=== PATIENT | female | born 1970 | race Caucasian/White ===

== ENCOUNTER 2023-05-19 17:56 | Emergency (ER) | payer OTHER ==
[2023-05-19 20:36] LABS: Absolute Lymphocytes (CBC) 0.7 K/uL (0.7-4.9); Absolute Monocytes 0.4 K/uL (0.1-1.3); Absolute Neutrophil 8.3 K/uL (1.8-8.0); Basophils % 0.3 % (0-1.3); Eosinophils % 0.2 % (0-4.4); Hematocrit 27.3 % (36.0-45.0); Hemoglobin 9.3 g/dL (12.0-15.0); MCH 36.2 pg (27.0-35.0); MCHC 34.2 g/dL (32.0-36.0); MCV 105.6 fL (80-100); MPV 6.9 fL (7.6-11.3); Monocytes % 4.5 % (3.3-12.3); Nucleated Red Blood Cells % 0.1 % (0-0); Platelets 192 thou/uL (152-406); RBC Red Blood Cell Count 2.58 M/uL (3.86-4.86); Red Cell Distribution Width 13.1 % (12.1-15.2)
[2023-05-19] MEDS ORDERED: NA CHLORIDE 0.9% 1,000 ML ONE (20:47)
[2023-05-19] MEDS ORDERED: FAMOTIDINE 20 MG/2 ML VIAL IV ONE (20:47)
[2023-05-19] MEDS ORDERED: ONDANSETRON 4 MG/2 ML VIAL ONE (20:47)
[2023-05-19 20:57] LABS: Albumin 2.2 g/dL (3.4-5.0); Albumin/Globulin Ratio 0.5 (1.1-1.8); Anion Gap 10.3 mEq/L (5.0-15.0); Bilirubin Total 0.4 mg/dL (0.2-1.0); Globulin 4.2 g/dL (2.3-3.5); Protein, Total 6.4 g/dL (6.4-8.2)
[2023-05-19 20:59] LABS: Potassium 2.3 mEq/L (3.5-5.1)
[2023-05-19 21:02] LABS: Blood Morphology Comment NOTED (NOT SEEN); Macrocytosis 1+; Platelet Estimate ADEQ; White Blood Cell Scan OK (OK)
[2023-05-19] MEDS ORDERED: POTASSIUM 25 MEQ EFFERV TAB ONE (21:05)
[2023-05-19] MEDS ORDERED: NA CHLORIDE 0.9% 0 ML ONE (21:06)
[2023-05-19] MEDS ORDERED: KCL 20 MEQ/100 mL IVPB 100 ML IV ONE (21:06)
[2023-05-19] MEDS ORDERED: KETOROLAC 30 MG/ML INJ ONE (21:18)
--- NOTE | 2023-05-19 21:48 | RAD REPORT ---
EXAM DESCRIPTION: US - Abdomen Exam Limited - 05/19/2023 9:40 pm CLINICAL HISTORY: ABD PAIN COMPARISON: No comparisons FINDINGS: The gallbladder demonstrates no gallstones. No pericholecystic fluid or gallbladder wall t hickening. The common bile duct is normal measuring 2 mm. The liver demonstrates no findings of intrahepatic biliary dilatation. IMPRESSION: Unremarkable examination.
--- NOTE | 2023-05-19 23:52 | EDPHYS ---
Physician Documentation [facility] Name: Radha Austin Age: 52 yrs Sex: Female : 1970 Arrival Date: 05/19/2023 Time: 17:56 Bed 10 Private MD: ED Physician Wallace Mejia HPI: 05/18 18:59 This 52 yrs old Female presents to ER via Ambulatory with complaints of sb4 Nausea/Vomiting, Weakness. 18:59 nausea and vomiting for months now. has seen Dr. Robb- had blood work, EGD, sb4 colonoscopy- but has not yet had her follow up appointment. states she continues to vomit and cannot hold anything down and is feeling very weak and dehydrated. also endorses diarrhea. denies any fever. 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 - Infectious Disease History:: Denies. - Social history:: Smoking status: Patient reports the use of cigarette tobacco products, denies chronic smoking, but will smoke occasionally. ROS: 18:59 Constitutional: Negative for fever, chills, and weight loss, sb4 18:59 Abdomen/GI: Positive for nausea, vomiting, and diarrhea, 18:59 All other systems are negative, Exam: 18:59 Constitutional: This is a well developed, well nourished patient who is awake, alert, sb4 and in no acute distress. Head/Face: Normocephalic, atraumatic. Eyes: Extra-ocular motions intact. Periorbital areas with no swelling, redness, or edema. ENT: Mucous membranes moist. Cardiovascular: Regular rate and rhythm with a normal S1 and S2. Respiratory: Lungs have equal breath sounds bilaterally, clear to auscultation and percussion. No rales, rhonchi or wheezes noted. No increased work of breathing, no retractions or nasal flaring. Abdomen/GI: Soft, non-tender, no distension. Skin: Warm, dry with normal turgor. Normal color with no rashes, no lesions, and no evidence of cellulitis. MS/ Extremity: Pulses equal, no cyanosis. Neurovascular intact. Full, normal range of motion. Neuro: Awake and alert, GCS 15, oriented to person, place, time, and situation. Motor strength 5/5 in all extremities. Sensory grossly intact. Vital Signs: 18:47 BP 104 / 76; Pulse 76; Resp 18; Temp 98(O); Pulse Ox 100% on R/A; Weight 33.11 kg (R); nj1 Height 5 ft. 2 in. ; Pain 6/10; 20:00 BP 102 / 79; Pulse 79; Resp 18; Pulse Ox 99% ; pf1 21:00 BP 105 / 72; Pulse 75; Resp 16; Pulse Ox 99% ; pf1 22:00 BP 110 / 75; Pulse 72; Resp 16; Pulse Ox 100% on R/A; Pain 0/10; pf1 23:00 BP 108 / 69; Pulse 83; Resp 16; Pulse Ox 100% ; pf1 05/19 00:00 BP 101 / 73; Pulse 80; Resp 16; Pulse Ox 100% ; pf1 01:00 BP 95 / 61; Pulse 69; Resp 16; Pulse Ox 99% on R/A; pf1 02:00 BP 99 / 71; Pulse 68; Resp 18; Temp 97.9; Pulse Ox 100% ; Pain 0/10; pf1 05/18 18:47 Body Mass Index 13.35 (33.11 kg, 157.48 cm) [facility] 05/18 18:47 Pain Scale: Adult nj 22:00 Pain Scale: Adult pf1 02:00 Pain Scale: Adult pf1 MDM: 05/18 18:56 Patient medically screened. sb4 23:16 Data reviewed: vital signs, nurses notes, lab test result(s), radiologic studies, and sb4 as a result, I will discharge patient. Consideration of Admission/Observation Escalation of care including admission/observation considered. Counseling: I had a detailed discussion with the patient and/or guardian regarding the historical points, exam findings, and any diagnostic results supporting the discharge/admit diagnosis, lab results, radiology results, the need for outpatient follow up, a meter reader inspector, to return to the emergency department if symptoms worsen or persist or if there are any questions or concerns that arise at home. 05/18 18:56 Order name: CBC with Diff; Complete Time: 21:05 sb4 04/02 18:56 Order name: CMP; Complete Time: 21:00 sb4 05/18 18:56 Order name: Lipase; Complete Time: 21:00 sb4 05/18 21:03 Order name: CBC Smear Scan; Complete Time: 21:05 EDMS 05/18 21:00 Order name: Abdomen Limited US; Complete Time: 21:52 sb4 05/18 21:29 Order name: CT Abd/Pelvis - IV Contrast Only sb4 05/18 18:56 Order name: IV Saline Lock; Complete Time: 20:27 sb4 05/18 18:56 Order name: Labs collected and sent; Complete Time: 20:27 sb4 Administered Medications: 21:20 Drug: NS 0.9% IV 1000 ml IV at 1 bolus Per protocol; 1000 mL bolus Route: IV; Rate: 1 pf1 bolus; Site: right antecubital; 22:30 Follow up: Response: No adverse reaction; IV Status: Completed infusion; IV Intake: pf1 1000ml 21:20 Drug: Famotidine IVP 20 mg IVP once; dilute with 10 mL 0.9% NaCl; give over 2 minutes pf1 Route: IVP; Site: right antecubital; 21:20 Follow up: Response: No adverse reaction; Marked relief of symptoms; Pain is decreased pf1 21:20 Drug: Ondansetron IVP 4 mg IVP once; over 2 minutes Route: IVP; Site: right antecubital;pf1 22:00 Follow up: Response: No adverse reaction; Marked relief of symptoms; Nausea is decreasedpf1 21:28 Drug: Potassium Chloride IV 20 mEq IV at calculated rate once; administer over 1-2 pf1 hours Route: IV; Rate: calculated rate; Site: right antecubital; 05/19 00:00 Follow up: Response: No adverse reaction; IV Status: Completed infusion; IV Intake: pf1 100ml 05/18 21:28 Drug: Potassium PO Effervescent Tablet 50 mEq PO once; dissolve in 4 ounces of water or pf1 juice Route: PO; 22:20 Follow up: Response: No adverse reaction; Marked relief of symptoms pf1 21:40 Drug: Ketorolac IVP 15 mg IVP once Route: IVP; Site: right antecubital; pf1 22:40 Follow up: Response: No adverse reaction; Marked relief of symptoms; Pain is decreased pf1 05/19 00:16 Drug: metroNIDAZOLE IVPB 500 mg 100 ml IVPB at 200 ml/hr once over 30 mins Volume: 100 cg ml; Route: IVPB; Rate: 200 ml/hr; Infused Over: 30 mins; Site: right antecubital; 01:00 Follow up: Response: No adverse reaction; Marked relief of symptoms; IV Status: pf1 Completed infusion; IV Intake: 100ml 00:16 Drug: Fluconazole PO 200 mg PO once Route: PO; cg 01:00 Follow up: Response: No adverse reaction pf1 00:17 Drug: Alum-Mag Hydroxide-Simeth PO Suspension (200 mg-200 mg-20 mg/5 mL) 30 ml PO once cg Route: PO; 01:00 Follow up: Response: No adverse reaction; Marked relief of symptoms; Pain is decreased pf1 00:17 Drug: Pantoprazole IVP 40 mg IVP once Route: IVP; Site: right antecubital; cg 01:00 Follow up: Response: No adverse reaction; Marked relief of symptoms pf1 00:17 Drug: Rocephin IV 1 grams IV at calculated rate once; Given slow IV push per pharmacy cg instructions Route: IV; Rate: calculated rate; Site: right antecubital; 00:20 Follow up: Response: No adverse reaction; Marked relief of symptoms; IV Status: pf1 Completed infusion; IV Intake: 10ml Disposition Summary: 05/19/23 23:51 Discharge Ordered Notes: Location: Home sb4 Problem: new sb4 Symptoms: have improved sb4 Condition: Stable sb4 Diagnosis - Left sided colitis sb4 - Hypokalemia sb4 Followup: sb4 - With: Zach Robb MD - When: 2 - 3 days - Reason: Recheck today's complaints, Re-evaluation by your physician Discharge Instructions: - Discharge Summary Sheet sb4 - Potassium Content of Foods sb4 - Hypokalemia sb4 - Colitis sb4 Forms: - Thank You Letter sb4 - Antibiotic Education sb4 - Patient Portal Instructions sb4 - Leadership Thank You Letter sb4 Prescriptions: - Flagyl 500 mg Oral Tablet - take 1 tablet ORAL route every 12 hours for 7 days; 14 tablet; Refills: 0, sb4 Product Selection Permitted - Cipro 500 mg Oral Tablet - take 1 tablet ORAL route every 12 hours for 7 days; 14 tablet; Refills: 0, sb4 Product Selection Permitted - Pepcid 20 mg Oral Tablet - take 1 tablet ORAL route once daily; 20 tablet; Refills: 0, Product Selection sb4 Permitted - ondansetron 8 mg Oral Tablet,disintegrating - take 1 tablet ORAL route every 12 hours; 20 tablet; Refills: 0, Product sb4 Selection Permitted Signatures: Dispatcher [employer] EDAnanya Chong, RN RN Rachell Lynch PA-C PA-C sb4 Jeannette Sierra RN RN pf1 Elba Hernandez RN RN nj1 Corrections: (The following items were deleted from the chart) 05/18 18:57 18:57 CBC+H.LAB.BRZ ordered. EDMS EDMS 18:57 18:57 COMPREHENSIVE METABOLIC PANEL+C.LAB.BRZ ordered. EDMS EDMS 18:57 18:57 LIPASE+C.LAB.BRZ ordered. EDMS EDMS
--- NOTE | 2023-05-19 23:52 | ER ---
Nurse's Notes [facility] Name: Radha Austin Age: 52 yrs Sex: Female : 1970 Arrival Date: 05/19/2023 Time: 17:56 Bed 10 Private MD: Diagnosis: Left sided colitis;Hypokalemia Presentation: 05/18 18:47 Chief complaint: Patient states: Vomiting for over a month, "cannot keep anything nj1 down". Had scope two weeks ago, fu appointment next week. Coronavirus screen: Vaccine status: Patient reports being unvaccinated. Ebola Screen: Patient denies travel to an Ebola-affected area in the 21 days before illness onset. Initial Sepsis Screen: Does the patient meet any 2 criteria? No. Patient's initial sepsis screen is negative. Does the patient have a suspected source of infection? No. Patient's initial sepsis screen is negative. Risk Assessment: Do you want to hurt yourself or someone else? Patient reports no desire to harm self or others. Onset of symptoms was March 2023. 18:47 Method Of Arrival: Ambulatory [facility] 18:47 Acuity: BESS 3 [facility] Triage Assessment: 19:50 General: Appears in no apparent distress. comfortable, well groomed, well developed, pf1 Behavior is calm, cooperative, appropriate for age, quiet. 19:50 Pain: Denies pain. EENT: No deficits noted. No signs and/or symptoms were reported pf1 regarding the EENT system. Neuro: Level of Consciousness is awake, alert, obeys commands, Oriented to person, place, time, situation, Reports weakness. Cardiovascular: No deficits noted. Capillary refill < 3 seconds Patient's skin is warm and dry. Respiratory: No deficits noted. Airway is patent Respiratory effort is even, unlabored, Respiratory pattern is regular, symmetrical, Breath sounds are clear bilaterally. GI: Abdomen is flat, non-distended, Bowel sounds present X 4 quads. Abd is soft and non tender X 4 quads. Reports nausea, vomiting. : No deficits noted. No signs and/or symptoms were reported regarding the genitourinary system. Derm: No deficits noted. No signs and/or symptoms reported regarding the dermatologic system. Musculoskeletal: No deficits noted. No signs and/or symptoms reported regarding the musculoskeletal system. 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 - Infectious Disease History:: Denies. - Social history:: Smoking status: Patient reports the use of cigarette tobacco products, denies chronic smoking, but will smoke occasionally. Screenin:50 [facility] ED Fall Risk Assessment (Adult) History of falling in the last 3 months, pf1 including since admission No falls in past 3 months (0 pts) Confusion or Disorientation No (0 pts) Intoxicated or Sedated No (0 pts) Impaired Gait No (0 pts) Mobility Assist Device Used No (0 pt) Altered Elimination No (0 pt) Score/Fall Risk Level 0 - 2 = Low Risk Oriented to surroundings, Maintained a safe environment, Educated pt \\T\\ family on fall prevention, incl call for assistance when getting out of bed, Assessed \\T\\ reinforced patient's understanding of fall precautions, Provided non-skid footwear, Hourly rounding (assess needs \\T\\ fall precautionary measures) done, Used ambulatory aids as needed (educated on \\T\\ assisted with), Used gait belt as appropriate. Abuse screen: Denies threats or abuse. Nutritional screening: No deficits noted. Tuberculosis screening: No symptoms or risk factors identified. Assessment: 19:50 GI: Abdomen is flat, non-distended. pf1 21:00 Reassessment: Patient appears in no apparent distress at this time. Patient and/or pf1 family updated on plan of care and expected duration. Pain level reassessed. Patient is alert, oriented x 3, equal unlabored respirations, skin warm/dry/pink. Patient states symptoms have improved. 22:00 Reassessment: Patient appears in no apparent distress at this time. Patient and/or pf1 family updated on plan of care and expected duration. Pain level reassessed. Patient is alert, oriented x 3, equal unlabored respirations, skin warm/dry/pink. 23:00 Reassessment: Patient appears in no apparent distress at this time. Patient and/or pf1 family updated on plan of care and expected duration. Pain level reassessed. Patient is alert, oriented x 3, equal unlabored respirations, skin warm/dry/pink. 05/19 00:00 Reassessment: Patient appears in no apparent distress at this time. Patient and/or pf1 family updated on plan of care and expected duration. Pain level reassessed. Patient is alert, oriented x 3, equal unlabored respirations, skin warm/dry/pink. Patient states feeling better. Patient states symptoms have improved. 01:00 Reassessment: Patient appears in no apparent distress at this time. Patient and/or pf1 family updated on plan of care and expected duration. Pain level reassessed. Patient is alert, oriented x 3, equal unlabored respirations, skin warm/dry/pink. Patient states feeling better. Patient states symptoms have improved. 02:00 Reassessment: Patient appears in no apparent distress at this time. Patient and/or pf1 family updated on plan of care and expected duration. Pain level reassessed. Patient is alert, oriented x 3, equal unlabored respirations, skin warm/dry/pink. Patient states feeling better. Patient states symptoms have improved. Vital Signs: 05/18 18:47 BP 104 / 76; Pulse 76; Resp 18; Temp 98(O); Pulse Ox 100% on R/A; Weight 33.11 kg (R); nj1 Height 5 ft. 2 in. ; Pain 6/10; 20:00 BP 102 / 79; Pulse 79; Resp 18; Pulse Ox 99% ; pf1 21:00 BP 105 / 72; Pulse 75; Resp 16; Pulse Ox 99% ; pf1 22:00 BP 110 / 75; Pulse 72; Resp 16; Pulse Ox 100% on R/A; Pain 0/10; pf1 23:00 BP 108 / 69; Pulse 83; Resp 16; Pulse Ox 100% ; pf1 05/19 00:00 BP 101 / 73; Pulse 80; Resp 16; Pulse Ox 100% ; pf1 01:00 BP 95 / 61; Pulse 69; Resp 16; Pulse Ox 99% on R/A; pf1 02:00 BP 99 / 71; Pulse 68; Resp 18; Temp 97.9; Pulse Ox 100% ; Pain 0/10; pf1 05/18 18:47 Body Mass Index 13.35 (33.11 kg, 157.48 cm) [facility] 05/18 18:47 Pain Scale: Adult nj1 22:00 Pain Scale: Adult pf1 02:00 Pain Scale: Adult pf1 ED Course: 05/18 17:59 Patient arrived in ED. mg5 18:26 Rachell Jameson PA-C is PHCP. sb4 18:26 Wallace Mejia MD is Attending Physician. sb4 18:51 Triage completed. nj1 18:52 Arm band placed on. nj1 19:50 Patient has correct armband on for positive identification. Placed in gown. Bed in low pf1 position. Call light in reach. Side rails up X 1. 20:27 CBC with Diff Sent. bc6 20:27 CMP Sent. bc6 20:27 Lipase Sent. bc6 20:27 Initial lab(s) drawn, by me, sent to lab. Inserted saline lock: 22 gauge in right bc6 antecubital area, using aseptic technique. Blood collected. 21:42 Abdomen Limited US In Process Unspecified. EDMS 22:37 CT Abd/Pelvis - IV Contrast Only In Process Unspecified. EDMS 23:51 Zach Robb MD is Referral Physician. sb4 05/19 02:19 Provided Education on: prescriptions . pf1 02:19 No provider procedures requiring assistance completed. IV discontinued, intact, pf1 bleeding controlled, No redness/swelling at site. Pressure dressing applied. Administered Medications: 05/18 21:20 Drug: NS 0.9% IV 1000 ml IV at 1 bolus Per protocol; 1000 mL bolus Route: IV; Rate: 1 pf1 bolus; Site: right antecubital; 22:30 Follow up: Response: No adverse reaction; IV Status: Completed infusion; IV Intake: pf1 1000ml 21:20 Drug: Famotidine IVP 20 mg IVP once; dilute with 10 mL 0.9% NaCl; give over 2 minutes pf1 Route: IVP; Site: right antecubital; 21:20 Follow up: Response: No adverse reaction; Marked relief of symptoms; Pain is decreased pf1 21:20 Drug: Ondansetron IVP 4 mg IVP once; over 2 minutes Route: IVP; Site: right antecubital;pf1 22:00 Follow up: Response: No adverse reaction; Marked relief of symptoms; Nausea is decreasedpf1 21:28 Drug: Potassium Chloride IV 20 mEq IV at calculated rate once; administer over 1-2 pf1 hours Route: IV; Rate: calculated rate; Site: right antecubital; 05/19 00:00 Follow up: Response: No adverse reaction; IV Status: Completed infusion; IV Intake: pf1 100ml 05/18 21:28 Drug: Potassium PO Effervescent Tablet 50 mEq PO once; dissolve in 4 ounces of water or pf1 juice Route: PO; 22:20 Follow up: Response: No adverse reaction; Marked relief of symptoms pf1 21:40 Drug: Ketorolac IVP 15 mg IVP once Route: IVP; Site: right antecubital; pf1 22:40 Follow up: Response: No adverse reaction; Marked relief of symptoms; Pain is decreased pf1 05/19 00:16 Drug: metroNIDAZOLE IVPB 500 mg 100 ml IVPB at 200 ml/hr once over 30 mins Volume: 100 cg ml; Route: IVPB; Rate: 200 ml/hr; Infused Over: 30 mins; Site: right antecubital; 01:00 Follow up: Response: No adverse reaction; Marked relief of symptoms; IV Status: pf1 Completed infusion; IV Intake: 100ml 00:16 Drug: Fluconazole PO 200 mg PO once Route: PO; 01:00 Follow up: Response: No adverse reaction pf1 00:17 Drug: Alum-Mag Hydroxide-Simeth PO Suspension (200 mg-200 mg-20 mg/5 mL) 30 ml PO once cg Route: PO; 01:00 Follow up: Response: No adverse reaction; Marked relief of symptoms; Pain is decreased pf1 00:17 Drug: Pantoprazole IVP 40 mg IVP once Route: IVP; Site: right antecubital; 01:00 Follow up: Response: No adverse reaction; Marked relief of symptoms pf1 00:17 Drug: Rocephin IV 1 grams IV at calculated rate once; Given slow IV push per pharmacy cg instructions Route: IV; Rate: calculated rate; Site: right antecubital; 00:20 Follow up: Response: No adverse reaction; Marked relief of symptoms; IV Status: pf1 Completed infusion; IV Intake: 10ml Medication: 05/18 19:50 VIS not applicable for this client. pf1 Intake: 22:30 IV: 1000ml; Total: 1000ml. pf1 05/19 00:00 IV: 100ml; Total: 1100ml. pf1 00:20 IV: 10ml; Total: 1110ml. pf1 01:00 IV: 100ml; Total: 1210ml. pf1 Outcome: 05/18 23:51 Discharge ordered by . lisa 05/19 02:19 Patient left the ED. pf1 02:19 Discharged to home ambulatory, with family, pf1 02:19 Condition: improved pf1 02:19 Discharge instructions given to patient, Instructed on discharge instructions, follow up and referral plans. Demonstrated understanding of instructions, follow-up care, medications, Prescriptions given X 4, Signatures: Dispatcher [employer] EDAnanya Chong, RN RN Rachell Lynch, PA-C PA-C sb4 Jeannette Sierra RN RN pf1 Bing Salomon bc6 Elba Hernandez RN RN nj1 Qian Leyva mg5
[2023-05-19] MEDS ORDERED: PANTOPRAZOLE 40 MG INJ ONE (23:58)
[2023-05-19] MEDS ORDERED: MAGNES/ALUMIN/SIMET 30ML UCUP ONE (23:58)
[2023-05-19] MEDS ORDERED: CEFTRIAXONE 1000 MG/VIAL ONE (23:58)
[2023-05-19] MEDS ORDERED: METRONIDAZOLE 500mg IVPB 500 MG/100 ML BAG IV ONE (23:59)
[2023-05-19] MEDS ORDERED: FLUCONAZOLE 100 MG TAB ONE (23:59)
[2023-05-20 02:49] VITALS: BP 104/76; TEMP 98; O2SAT 100
--- NOTE | 2023-05-20 10:37 | RAD REPORT ---
EXAM DESCRIPTION: CT Abdomen and Pelvis With Intravenous Contrast CLINICAL HISTORY: The patient is 52 years old and is Female; ABD PAIN TECHNIQUE: Axial computed tomography images of the abdomen and pelvis with intravenous contrast. S agittal and coronal reformatted images were created and reviewed. This CT exam was performed using one or more of the following dose reduction techniques: automated exposure control, adjustment of t he mA and/or kV according to patient size, and/or use of iterative reconstruction technique. COMPARISON: No relevant prior studies available. FINDINGS: LUNG BASES: Unremarkable. No mass. No consolidation. ABDOMEN: LIVER: The liver is diffusely heterogeneous with areas of fatty infiltration. GALLBLADDER AND BILE DUCTS: No calcified stones. No ductal dilation. PANCREAS: No ductal dilation. No mass. SPLEEN: The spleen is heterogeneous, likely secondary to phase of contrast. ADRENALS: Unremarkable. No mass. KIDNEYS AND URETERS: Unremarkable. The kidneys enhance symmetrically. No obstructing renal or ure teral calculus is seen. No hydronephrosis or hydroureter. No perinephric fluid or stranding. STOMACH AND BOWEL: The stomach is not well-distended. The small bowel is relatively decompressed. Stool and air noted throughout colon. Extensive mucosal thickening involving the cecum and ascending colon is present. PELVIS: APPENDIX: No findings to suggest acute appendicitis. BLADDER: Unremarkable. No mass. REPRODUCTIVE: Unremarkable as visualized. ABDOMEN and PELVIS: INTRAPERITONEAL SPACE: Small volume ascites is present throughout the abdomen and pelvis. BONES/JOINTS: No acute fracture. SOFT TISSUES: Diffuse edema throughout the mesentery is noted. VASCULATURE: Atherosclerosis of the vasculature is present. No abdominal aortic aneurysm. LYMPH NODES: Unremarkable. No enlarged lymph nodes. IMPRESSION: 1. Findings suggest extensive colitis specifically involving the cecum and ascending c olon. 2. Small volume ascites with extensive mesenteric edema. 3. Enlarged liver which is diffusely heterogeneous. Findings may be secondary to geographic fatty i nfiltration. However, correlation with patient's laboratory values and follow-up is recommended. Electronically signed by: Bernie Montenegro MD 05/19/2023 10:58 PM CDT Due to temporary technical issues with the PACS/Fluency reporting system, reports are being signed by the in house radiologist without review as a courtesy to ensure prompt reporting. The interpreting r adiologist is fully responsible for the content of the report.
== END 2023-05-20 02:19 | disposition home or self-care (01) ==
LOC: ER 17:56
DX: K51.50 Left sided colitis without complications (principal); E87.6 Hypokalemia; F17.210 Nicotine dependence, cigarettes, uncomplicated
CPT/HCPCS: 85025; 36415; 83690; 80053; 74177; 76705; Q9967; J3480; C9113; J2405; J7030; J0696; J7040

== ENCOUNTER 2023-05-27 13:05 | Inpatient (IN) | payer OTHER ==
[2023-05-27] MEDS ORDERED: NA CHLORIDE 0.9% 1,000 ML ONE ×2 (13:26→15:04)
[2023-05-27] MEDS ORDERED: ONDANSETRON 4 MG/2 ML VIAL ONE (13:26)
[2023-05-27 13:56] LABS: Hematocrit 29.3 % (36.0-45.0); Hemoglobin 9.5 g/dL (12.0-15.0); MCH 35.5 pg (27.0-35.0); MCV 109.4 fL (80-100); RBC Red Blood Cell Count 2.68 M/uL (3.86-4.86)
[2023-05-27 13:57] LABS: Absolute Lymphocytes (CBC) 0.4 K/uL (0.7-4.9); Absolute Monocytes 0.7 K/uL (0.1-1.3); Absolute Neutrophil 12.2 K/uL (1.8-8.0); Eosinophils % 0.1 % (0-4.4); Lymphocytes % 3.2 % (15.3-44.8); MCHC 32.4 g/dL (32.0-36.0); MPV 7.9 fL (7.6-11.3); Monocytes % 5.1 % (3.3-12.3); Neutrophils % 91.6 % (41.7-73.7); Platelets 257 thou/uL (152-406); Red Cell Distribution Width 14.4 % (12.1-15.2)
--- NOTE | 2023-05-27 14:24 | RAD REPORT ---
EXAM DESCRIPTION: CT - Abdomen Pelvis W Contrast - 05/27/2023 2:03 pm CLINICAL HISTORY: Abdominal pain COMPARISON: May 19, 2023 TECHNIQUE: Computed axial tomography of the abdomen pelvis was obtained. 100 cc Isovue-300 was admin istered intravenously. Oral contrast was not requested which limits evaluation of bowel and appendix All CT scans are performed using dose optimization technique as appropriate and may include automated exposure control or mA/KV adjustment according to patient size. FINDINGS: Small right pleural effusion with mild right lower lobe atelectasis Hyperplasia or adrenal glands is suspected Liver, spleen, pancreas are unremarkable Diminished density of the renal cortex bilaterally. Marked thickening of the wall of the right and transverse colon. Moderate thickening of the wall of l eft colon Moderate pelvic and small to moderate abdominal ascites No free air. No pneumatosis intestinalis IMPRESSION: Moderate to marked pancolitis Diminished density of the renal cortex bilaterally. This is of uncertain etiology but may be related to systemic illness resulting in diminished perfusion
[2023-05-27 14:31] LABS: Specific Gravity 1.017 (1.005-1.030); Transitional Epithelial <5 /HPF (None Seen); Urine Bacteria <20 /HPF (<20); Urine Bilirubin NEGATIVE (Negative); Urine Blood 1+ (Negative); Urine Clarity Extremely Turbid (Clear); Urine Color Yellow (Yellow); Urine Culture Reflex Order REFLEXED; Urine Glucose NEGATIVE (Negative); Urine Ketones NEGATIVE (Negative); Urine Microscopic Reflex YN ORDER UMIC; Urine Mucus Slight /HPF (None Seen); Urine Nitrite NEGATIVE (Negative); Urine Protein 2+ (Negative); Urine RBC <5 /HPF (None Seen); Urine Urobilinogen Normal (Normal); Urine pH 5.5 (5.0-7.0)
[2023-05-27 14:32] LABS: Albumin 2.2 g/dL (3.4-5.0); Albumin/Globulin Ratio 0.6 (1.1-1.8); Anion Gap 12.7 mEq/L (5.0-15.0); Bilirubin Total 0.6 mg/dL (0.2-1.0); Globulin 3.9 g/dL (2.3-3.5); Potassium 3.7 mEq/L (3.5-5.1); Protein, Total 6.1 g/dL (6.4-8.2)
[2023-05-27 14:37] LABS: Platelet Estimate ADEQ; White Blood Cell Scan OK (OK)
[2023-05-27 14:38] LABS: Blood Morphology Comment NOTED (NOT SEEN); Macrocytosis 1+
--- NOTE | 2023-05-27 14:52 | ER ---
Nurse's Notes [facility] Name: Radha Austin Age: 52 yrs Sex: Female : 1970 Arrival Date: 05/27/2023 Time: 13:05 Bed 14 Private MD: Diagnosis: Acute kidney failure, unspecified;Dehydration;Pancolitis;Severe sepsis with septic shock Presentation: 05/26 13:16 Chief complaint: Patient states: Here last Thursday, felt better for a couple days. Very ll1 weak, brain fog, no appetite, diarrhea now for 4-5 days. Coronavirus screen: Client denies travel out of the [place] in the last 14 days. At this time, the client does not indicate any symptoms associated with coronavirus-19. Ebola Screen: Patient denies travel to an Ebola-affected area in the 21 days before illness onset. Initial Sepsis Screen: Does the patient meet any 2 criteria? No. Patient's initial sepsis screen is negative. Does the patient have a suspected source of infection? No. Patient's initial sepsis screen is negative. Risk Assessment: Do you want to hurt yourself or someone else? Patient reports no desire to harm self or others. Onset of symptoms was May 22, 2023. 13:16 Method Of Arrival: Ambulatory ll1 13:16 Acuity: BESS 3 ll1 Triage Assessment: 13:17 General: Appears uncomfortable, ill, emaciated, Behavior is calm, cooperative, ll1 appropriate for age. General: Reports fatigue for. Pain: Complains of pain in abdomen Pain currently is 6 out of 10 on a pain scale. Quality of pain is described as aching, crushing. Neuro: Reports weakness "brain fog". GI: Reports lower abdominal pain, diarrhea, intolerance of fluids, intolerance of food. Historical: - Allergies: 13:15 No Known Allergies; ll1 - PMHx: 13:15 Anxiety; Colitis; Depression; Hypertension; ll1 - PSHx: 13:15 hysterectomy; ll1 - Immunization history:: Adult Immunizations up to date. - Infectious Disease History:: Denies. - Social history:: Smoking status: Patient/guardian denies using tobacco, Stopped _ months ago .2. Screenin:44 [facility] ED Fall Risk Assessment (Adult) History of falling in the last 3 months, kc6 including since admission No falls in past 3 months (0 pts) Confusion or Disorientation No (0 pts) Intoxicated or Sedated No (0 pts) Impaired Gait No (0 pts) Mobility Assist Device Used No (0 pt) Altered Elimination No (0 pt) Score/Fall Risk Level 0 - 2 = Low Risk. Abuse screen: Denies threats or abuse. Denies injuries from another. Nutritional screening: No deficits noted. Tuberculosis screening: No symptoms or risk factors identified. Assessment: 13:45 General: Appears in no apparent distress. comfortable, slender, well groomed, Behavior kc6 is calm, cooperative, appropriate for age. Pain: Denies pain. Neuro: Level of Consciousness is awake, alert, obeys commands, Oriented to person, place, time, situation, Appropriate for age. Cardiovascular: Capillary refill < 3 seconds. Respiratory: Airway is patent Trachea midline Respiratory effort is even, unlabored, Respiratory pattern is regular, symmetrical. GI: Abdomen is flat, non-distended, Bowel sounds present X 4 quads. Abd is soft and non tender X 4 quads. Reports diarrhea, nausea, vomiting, Patient currently denies abdominal pain. : No signs and/or symptoms were reported regarding the genitourinary system. EENT: No signs and/or symptoms were reported regarding the EENT system. Derm: No signs and/or symptoms reported regarding the dermatologic system. Skin is intact, is healthy with good turgor, Skin is pink, warm \\T\\ dry. Musculoskeletal: No signs and/or symptoms reported regarding the musculoskeletal system. Circulation, motion, and sensation intact. Capillary refill < 3 seconds, Range of motion: intact in all extremities. 15:30 Reassessment: Patient appears in no apparent distress at this time. Patient and/or ph family updated on plan of care and expected duration. Pain level reassessed. Patient is alert, oriented x 3, equal unlabored respirations, skin warm/dry/pink. 16:30 Reassessment: Patient appears in no apparent distress at this time. Patient and/or ph family updated on plan of care and expected duration. Pain level reassessed. Patient is alert, oriented x 3, equal unlabored respirations, skin warm/dry/pink. 18:00 Reassessment: Patient appears in no apparent distress at this time. Patient and/or ph family updated on plan of care and expected duration. Pain level reassessed. Patient is alert, oriented x 3, equal unlabored respirations, skin warm/dry/pink. Vital Signs: 13:16 BP 94 / 67; Pulse 80; Resp 18; Temp 98; Pulse Ox 100% on R/A; Weight 34.47 kg (R); ll1 Height 5 ft. 2 in. ; Pain 6/10; 14:30 BP 88 / 52; Pulse 73; Resp 18; Pulse Ox 99% on R/A; ph 15:30 BP 87 / 52; Pulse 72; Resp 18; Pulse Ox 100% on R/A; ph 16:30 BP 98 / 70; Pulse 69; Resp 16; Pulse Ox 100% on R/A; ph 17:30 BP 93 / 69; Pulse 69; Resp 18; Pulse Ox 98% on R/A; ph 18:00 BP 83 / 64; Pulse 71; Resp 18; Pulse Ox 100% on R/A; ph 13:16 Body Mass Index 13.90 (34.47 kg, 157.48 cm) ll1 13:16 Pain Scale: Adult ll1 ED Course: 13:06 Patient arrived in ED. rg4 13:07 Christine Malave FNP-C is [facility]. kb 13:07 Frederick Al MD is Attending Physician. kb 13:08 Socorro Plummer, MARY is Primary Nurse. ph 13:15 Arm band placed on Patient placed in an exam room, on a stretcher. ll1 13:17 Triage completed. ll1 13:25 Urinalysis w/ reflexes Sent. kc6 13:44 Inserted saline lock: 22 gauge in left forearm, using aseptic technique. Blood kc6 collected. 13:45 Patient has correct armband on for positive identification. Bed in low position. Call kc6 light in reach. Side rails up X 1. Client placed on continuous cardiac and pulse oximetry monitoring. NIBP monitoring applied. Door closed. Noise minimized. Lights dimmed. Warm blanket given. 14:05 CT Abd/Pelvis - IV Contrast Only In Process Unspecified. EDMS 14:50 Kassy Loya MD is Hospitalizing Provider. kb 15:19 No provider procedures requiring assistance completed. Patient admitted, IV remains in ph place. 05/27 02:37 Inserted saline lock: 22 gauge in right forearm, using aseptic technique. ty 17:02 Diet tray given. [email or web address] Administered Medications: 05/26 13:46 Drug: NS 0.9% IV 1000 ml IV at 1 bolus Per protocol; 1000 mL bolus Route: IV; Rate: 1 kc6 bolus; Site: left forearm; 15:20 Follow up: Response: No adverse reaction; IV Status: Completed infusion; IV Intake: ph 1000ml 13:46 Drug: Ondansetron IVP 4 mg IVP once; over 2 minutes Route: IVP; Site: left forearm; kc6 15:20 Follow up: Response: No adverse reaction ph 15:18 Drug: Ciprofloxacin IVPB 400 mg 200 ml IVPB once over 60 mins Volume: 200 ml; Route: ph IVPB; Infused Over: 60 mins; Site: left forearm; 16:30 Follow up: Response: No adverse reaction; IV Status: Completed infusion ph 15:18 Drug: NS 0.9% IV 1000 ml IV at 1000 ml once Route: IV; Rate: 1000 ml; Site: left ph forearm; 19:16 Follow up: Response: No adverse reaction; IV Status: Completed infusion; IV Intake: ph 1000ml 16:04 Not Given (Physician Discretion): [id number] mg 100 ml IVPB at 200 ml/hr once ph over 30 mins Medication: 15:20 VIS not applicable for this client. ph Intake: 15:20 IV: 1000ml; Total: 1000ml. ph 19:16 IV: 1000ml; Total: 2000ml. ph Outcome: 14:51 Decision to Hospitalize by Provider. kb 18:10 Admitted to ER Hold. Please see [facility] for further documentation. ph 18:10 Condition: stable 18:10 Instructed on the need for admit, 05/27 17:55 Patient left the ED. iw Signatures: Dispatcher [employer] EDIA Christine Maalve, CHERYLC PUNCHING MACHINE OPERATOR-CkValeria Galvin RN RN iw Socorro Plummer RN RN ph Nicky Slade rg4 Елена Austin RN RN ll1 Melia Mari RN RN kc6 Maurizio Gonzalez [email or web address] Caleb Watt Corrections: (The following items were deleted from the chart) 05/26 13:19 13:16 BP 94 / 67; Pulse 80bpm; Resp 18bpm; Pulse Ox 100% RA; Temp 98F; 34.47 kg ll1 Reported; Pain 6/10, Adult; ll1 13:22 13:16 Chief complaint: Patient states: Here last Thursday, felt better for a couple 1 days. Very weak, brain fog, no appetite, diarrhea now. 1
--- NOTE | 2023-05-27 14:52 | EDPHYS ---
Physician Documentation [facility] Name: Radha Austin Age: 52 yrs Sex: Female : 1970 Arrival Date: 05/27/2023 Time: 13:05 Bed 14 Private MD: ED Physician Frederick Al HPI: 05/26 13:29 This 52 yrs old Female presents to ER via Ambulatory with complaints of Vomiting. kb 13:29 Pt is a 52 year old female who presents for vomiting, abd pain and diarrhea that kb started at the end of February, about 2.5 months ago. States she has seen Dr Robb for this, had an upper and lower GI done and has been here for these complaints. Came in today due to increased weakness. States she has progressively gotten weaker due to inability to tolerate anything by mouth. Reports fever last week, but not since then. States she hasn't vomited in 3 days. . Historical: - Allergies: 13:15 No Known Allergies; ll1 - PMHx: 13:15 Anxiety; Colitis; Depression; Hypertension; ll1 - PSHx: 13:15 hysterectomy; ll1 - Immunization history:: Adult Immunizations up to date. - Infectious Disease History:: Denies. - Social history:: Smoking status: Patient/guardian denies using tobacco, Stopped _ months ago .2. ROS: 13:29 Constitutional: As per HPI kb Exam: 13:29 Constitutional: This is a well developed, well nourished patient who is awake, alert, kb and in no acute distress. Head/Face: Normocephalic, atraumatic. ENT: Moist Mucous membranes Cardiovascular: Regular rate Respiratory: Respirations even and unlabored. No increased work of breathing. Talking in full sentences Skin: Warm, dry with normal turgor. Normal color. MS/ Extremity: Pulses equal, no cyanosis. Neurovascular intact. Full, normal range of motion. Neuro: Awake and alert, GCS 15, oriented to person, place, time, and situation. Moves all extremities. Normal gait. 13:29 Abdomen/GI: Inspection: abdomen appears normal, Bowel sounds: normal, Palpation: soft, in all quadrants, moderate abdominal tenderness, in the right lower quadrant and left lower quadrant, Vital Signs: 13:16 BP 94 / 67; Pulse 80; Resp 18; Temp 98; Pulse Ox 100% on R/A; Weight 34.47 kg (R); ll1 Height 5 ft. 2 in. ; Pain 6/10; 14:30 BP 88 / 52; Pulse 73; Resp 18; Pulse Ox 99% on R/A; ph 15:30 BP 87 / 52; Pulse 72; Resp 18; Pulse Ox 100% on R/A; ph 16:30 BP 98 / 70; Pulse 69; Resp 16; Pulse Ox 100% on R/A; ph 17:30 BP 93 / 69; Pulse 69; Resp 18; Pulse Ox 98% on R/A; ph 18:00 BP 83 / 64; Pulse 71; Resp 18; Pulse Ox 100% on R/A; ph 13:16 Body Mass Index 13.90 (34.47 kg, 157.48 cm) ll1 13:16 Pain Scale: Adult ll1 MDM: 13:07 Patient medically screened. kb 13:29 Data reviewed: vital signs, nurses notes. kb 14:47 Differential diagnosis: Nonspecific abd pain, diverticulitis, colitis, dehydration, kb abnormal electrolytes. Consideration of Admission/Observation Patient was admitted/placed on observation. Escalation of care including admission/observation considered. Management of patient was discussed with the following: Hospitalist: Hospitalist team, pt accepted for admission under Dr Loya. Historians other than the Patient: Spouse/Significant Other: . Counseling: I had a detailed discussion with the patient and/or guardian regarding the historical points, exam findings, and any diagnostic results supporting the discharge/admit diagnosis, lab results, radiology results, the need for further work-up and treatment in the hospital. 15:57 ED course: Sepsis reevaluation complete. . ED course: 2000ml bolus of NS given. Meets kb sepsis bolus criteria of 30ml/kg (1034.1ml). 05/27 06:56 Order name: Type and Screen EDMS 05/26 13:13 Order name: CBC with Diff; Complete Time: 14:41 kb 05/26 13:13 Order name: CMP; Complete Time: 14:41 kb 05/26 13:13 Order name: Lipase; Complete Time: 14:41 kb 05/26 13:13 Order name: Urinalysis w/ reflexes; Complete Time: 14:41 kb 05/26 13:15 Order name: Magnesium; Complete Time: 14:13 kb 05/26 13:15 Order name: [place] Screen Profile; Complete Time: 15:47 kb 05/26 14:26 Order name: Blood Culture Adult (2) kb 05/26 14:26 Order name: Lactate w/ 2H reflex if indic.; Complete Time: 16:19 kb 05/26 14:26 Order name: Protime (+inr); Complete Time: 15:34 kb 05/26 14:26 Order name: Ptt, Activated; Complete Time: 15:34 kb 05/26 14:35 Order name: Urine Culture EDMS 05/26 14:38 Order name: CBC Smear Scan; Complete Time: 14:41 EDMS 05/26 16:25 Order name: C.difficile GDH Ag EDMS 05/26 16:25 Order name: Acute Hepatitis Panel; Complete Time: 23:43 EDMS 05/26 16:25 Order name: Magnesium/Creatinine Random Ur EDMS 05/26 16:25 Order name: Osmolality, Serum; Complete Time: 22:03 EDMS 05/26 16:25 Order name: Osmolality, Urine EDMS 05/26 16:25 Order name: UR CL RANDOM EDMS 05/26 16:25 Order name: Lactate w/ 2H reflex if indic. EDMS 05/26 16:25 Order name: Protime (+INR); Complete Time: 19:44 EDMS 05/26 16:25 Order name: PTT, Activated Partial Thromb; Complete Time: 19:44 EDMS 05/26 16:25 Order name: Thyroid Stimulating Hormone; Complete Time: 22:03 EDMS 05/26 16:25 Order name: Vancomycin Level Trough; Complete Time: 22:03 EDMS 05/26 16:25 Order name: CBC with Automated Diff EDMS 05/26 16:25 Order name: CBC with Automated Diff EDMS 05/26 16:25 Order name: CBC with Automated Diff EDMS 05/26 16:25 Order name: CBC with Automated Diff EDMS 05/26 16:25 Order name: CBC with Automated Diff EDMS 05/26 16:25 Order name: CBC with Automated Diff EDMS 05/26 16:25 Order name: Comprehensive Metabolic Panel EDMS 05/26 16:25 Order name: Comprehensive Metabolic Panel EDMS 05/26 16:25 Order name: Comprehensive Metabolic Panel EDMS 05/26 16:25 Order name: Comprehensive Metabolic Panel EDMS 05/26 16:25 Order name: Comprehensive Metabolic Panel EDMS 05/26 16:25 Order name: Comprehensive Metabolic Panel EDMS 05/26 16:25 Order name: Creatine Phosphokinase EDMS 05/26 16:25 Order name: Creatine Phosphokinase; Complete Time: 22:03 EDMS 05/26 16:25 Order name: Creatine Phosphokinase EDMS 05/26 16:25 Order name: Lipid Profile EDMS 05/26 16:25 Order name: Lipid Profile EDMS 05/26 16:25 Order name: Magnesium EDMS 05/26 16:25 Order name: Magnesium EDMS 05/26 16:25 Order name: Magnesium EDMS 05/26 16:25 Order name: Magnesium EDMS 05/26 16:25 Order name: Phosphorus EDMS 05/26 16:25 Order name: Phosphorus EDMS 05/26 16:25 Order name: Phosphorus EDMS 05/26 16:25 Order name: Phosphorus EDMS 05/26 20:24 Order name: Glucose, Ancillary Testing; Complete Time: 22:03 EDMS 05/26 20:43 Order name: T4 Free; Complete Time: 22:03 EDMS 05/26 21:14 Order name: Lactate Sepsis 2 HR Follow-up; Complete Time: 22:03 EDMS 05/27 07:02 Order name: ABO/RH no charge EDWV 05/27 07:28 Order name: Hemoglobin EDWV 05/27 07:28 Order name: Hematocrit EDWV 05/27 08:18 Order name: Glucose, Ancillary Testing EDWV 05/27 11:10 Order name: UR SODIUM EDWV 05/27 11:53 Order name: Urine Microalbumin/Creatinine EDWV 05/27 12:28 Order name: Glucose, Ancillary Testing EDWV 05/27 14:11 Order name: Comprehensive Metabolic Panel EDWV 05/27 14:35 Order name: Hemoglobin EDMS 05/27 14:35 Order name: Hematocrit EDWV 05/26 13:15 Order name: CT Abd/Pelvis - IV Contrast Only; Complete Time: 14:25 kb 05/26 16:25 Order name: Renal Ultrasound-Complete; Complete Time: 18:08 EDMS 05/27 07:10 Order name: RAD EDWV 05/26 14:26 Order name: EKG; Complete Time: 14:27 kb 05/26 16:25 Order name: CONS Physician Consult EDWV 05/26 13:13 Order name: IV Saline Lock; Complete Time: 13:43 kb 05/26 13:13 Order name: Labs collected and sent; Complete Time: 13:43 kb 05/26 14:09 Order name: Labs - recollect needed: recollect red top please; Complete Time: 19:04 em1 05/26 14:26 Order name: Accucheck; Complete Time: 14:30 kb 05/26 14:26 Order name: Cardiac monitoring; Complete Time: 19:03 kb 05/26 14:26 Order name: EKG - Nurse/Tech; Complete Time: 19:03 kb 05/26 14:26 Order name: IV Saline Lock - Large Bore; Complete Time: 14:30 kb 05/26 14:26 Order name: O2 Per Protocol; Complete Time: 14:30 kb 05/26 14:26 Order name: O2 Sat Monitoring; Complete Time: 14:30 kb 05/26 14:26 Order name: Vital Signs; Complete Time: 14:30 kb Administered Medications: 13:46 Drug: NS 0.9% IV 1000 ml IV at 1 bolus Per protocol; 1000 mL bolus Route: IV; Rate: 1 kc6 bolus; Site: left forearm; 15:20 Follow up: Response: No adverse reaction; IV Status: Completed infusion; IV Intake: ph 1000ml 13:46 Drug: Ondansetron IVP 4 mg IVP once; over 2 minutes Route: IVP; Site: left forearm; kc6 15:20 Follow up: Response: No adverse reaction ph 15:18 Drug: Ciprofloxacin IVPB 400 mg 200 ml IVPB once over 60 mins Volume: 200 ml; Route: ph IVPB; Infused Over: 60 mins; Site: left forearm; 16:30 Follow up: Response: No adverse reaction; IV Status: Completed infusion ph 15:18 Drug: NS 0.9% IV 1000 ml IV at 1000 ml once Route: IV; Rate: 1000 ml; Site: left ph forearm; 19:16 Follow up: Response: No adverse reaction; IV Status: Completed infusion; IV Intake: ph 1000ml 16:04 Not Given (Physician Discretion): [id number] mg 100 ml IVPB at 200 ml/hr once ph over 30 mins Disposition Summary: 05/27/23 14:51 Hospitalization Ordered Notes: Hospitalization Status: Inpatient Admission kb Provider: Kassy Loya Condition: Stable kb Problem: new kb Symptoms: are unchanged kb Bed/Room Type: Standard kb Location: Intensive Care Unit(05/28/23 17:25) ja1 Room Assignment: 4-(05/28/23 17:25) [facility] Diagnosis - Acute kidney failure, unspecified kb - Dehydration kb - Pancolitis kb - Severe sepsis with septic shock kb Forms: - Medication Reconciliation Form kb - SBAR form kb - Leadership Thank You Letter kb Critical care time excluding procedures: 14:51 Critical care time: Bedside Care: 10 minutes, Consultation: 10 minutes, Family kb Intervention: 10 minutes. Total time: 30 minutes Addendum: 06/01/2023 09:40 I was immediately available for consultation during this patient's visit. I did not e c2 personally see the patient or discuss the patient with the JEANA. . Signatures: Dispatcher [employer] EDChristine Aguilar, BRICE-Tiffanie NARVAEZ-Stevie Inman em1 Socorro Plummer RN RN ph Jose Maria Castellon RN RN ja1 Елена Austin RN RN 1 Melia Mari RN RN kc6 Frederick Al MD MD ec2 Corrections: (The following items were deleted from the chart) 05/26 13:14 13:14 CBC+H.LAB.BRZ ordered. EDMS EDMS 13:14 13:14 COMPREHENSIVE METABOLIC PANEL+C.LAB.BRZ ordered. EDMS EDMS 13:14 13:14 LIPASE+C.LAB.BRZ ordered. EDMS EDMS 13:14 13:14 Urinalysis+U.LAB.BRZ ordered. EDMS EDMS 13:15 13:15 MAGNESIUM+C.LAB.BRZ ordered. EDMS EDMS 13:15 13:15 MONO SCREEN PROFILE+I.LAB.BRZ ordered. EDMS EDMS 13:15 13:15 Abdomen Pelvis W Con+CT.RAD.BRZ ordered. EDMS EDMS 14:27 14:27 BLOOD CULTURE*+BA.LAB.BRZ ordered. EDMS EDMS 14:27 14:27 LACTATE+C.LAB.BRZ ordered. EDMS EDMS 14:27 14:27 PROTIME (+INR)+COAG.LAB.BRZ ordered. EDMS EDMS 14:27 14:27 PTT, ACTIVATED+COAG.LAB.BRZ ordered. EDMS EDMS 18:01 14:51 Telemetry/MedSurg (Inpatient) kb ll1 18:01 14:51 kb ll1 18:02 18:01 1 1 05/27 17:25 04 18:01 [place] [id number] 05/27 17:05/26 18:[facility]
[2023-05-27] MEDS ORDERED: METRONIDAZOLE 500mg IVPB 500 MG/100 ML BAG IV ONE (15:05)
[2023-05-27] MEDS ORDERED: Ciprofloxacin 200mg IV 0 MG/0 ML IV.SOLN. IV ONE (15:05)
[2023-05-27] MEDS ORDERED: CIPROFLOXACIN 400mg IV 400 MG/200 ML BAG IV ONE (15:06)
[2023-05-27 15:30] LABS: PT Prothrombin Time 15.9 SECONDS (9.5-12.5); Protime INR 1.46
[2023-05-27 15:44] LABS: Monoscreen NEG (NEG)
--- NOTE | 2023-05-27 16:06 | P.HP ---
Certification for Inpatient Patient admitted to: Inpatient With expected LOS: >2 Midnights Patient will require the following post-hospital care: None Practitioner: I am a practitioner with admitting privileges, knowledge of patient current condition, hospital course, and medical plan of care. Services: Services provided to patient in accordance with Admission requirements found in Title 42 Section 412.3 of the Code of Federal Regulations <Ameena Stevens - Last Filed: 05/27/23 17:38> Patient History Date of Service: 05/27/23 Reason for admission: pancolitis, acute renal failure, septic shock History of Present Illness: Mrs. Austin is a 52-year-old female with a past medical history of hypertension, hyperlipidemia, anemia, gastrointestinal distress, anxiety, and alcohol abuse. She has been seeing GI over the past couple of months for persistent nausea, vomiting, diarrhea, weight loss. She has had an endoscopy, colonoscopy, and stool studies. She arrived to the emergency room on 05/19/2023 for significant vomiting, at that time her labs were significant for an H&H 9.3 and 27.3, sodium 135, potassium 2.3, chloride 105, bicarb 22, BUN 4, creatinine 0.8, blood sugar 82. Her LFTs were significant for AST 141, ALT 89, ALK 228, she had a CT abd/pelvis on 05/18 that showed "findings suggest extensive colitis specifically in the cecum and ascending colon. Small volume ascites with extensive mesenteric edema. Enlarged liver which is diffusely heterogeneous. Findings may be secondary to geographic fatty infiltration. However, correlation with patient's laboratory values and follow-up is recommended." During her visit on 05 18 her electrolytes were repleted, she was given Cipro and Flagyl IV and discharged home with those antibiotics in oral form. Today, 05/27/23, Ms. Austin returns to the emergency department with complaints of vomiting. On laboratory evaluation today H&H 9.5 and 29.3 with a white count of 13.3. Her electrolytes are very significant for a sodium of 129, potassium 3.7, chloride 105, bicarb 15, BUN 13, with a creatinine of 5.53. Her liver enzymes remain elevated with an AST of 119 ALT 57 alk phos 244. Today's imaging unfortunately with contrast, shows "moderate to marked pancolitis. Diminished density of the renal cortex bilaterally. This is of uncertain etiology but may be related to systemic illness resulting in diminished perfusion." Mrs. Austin will be admitted to ICU with a diagnosis of pancolitis, acute renal failure, and septic shock. Blood pressures soft, systolics in the 120s are her quoted norm. Initial blood pressure in the ED with a systolic pressure below 100, on my evaluation in the emergency department her repeat blood pressure was a systolic of 88. Concern for pseudomembranous colitis will be addressed with C. difficile studies. Will start oral vancomycin pending results. A 60 mL/kg bolus of normal saline was given in the emergency department, and 400 mg Cipro was infused after collection of blood cultures and lactate. Home medications list reviewed: Yes - Past Medical/Surgical History Has patient received pneumonia vaccine in the past: No Diabetic: No -: endometrosis -: HTN -: Depression -: ETOH abuse -: hysterectomy 1998 -: partial colon removal Psychosocial/ Personal History: Lives at home with her . He tells me she had been drinking a 5th of Vodka every 5 days until she got so sick in February. In March they started following up with GI. She has had a endoscopy, colonoscopy, and testing for crohns is upcoming. She has been having N/V/D and weight loss since per her Spouse. - Family History Family History: Reviewed- Non-Contributory - Family History Father -: Cancer Notes: prostate cancer Mother -: Lung disease - Social History Smoking Status: Never smoker Alcohol use: Yes CD- Drugs: No Caffeine use: Yes Place of Residence: Home <Ameena Stevens Juan - Last Filed: 05/27/23 17:38> Date of Service: 05/27/23 <Kassy Loya - Last Filed: 05/27/23 22:15> Allergies No Known Allergies Allergy (Verified 02/13/13 12:16) Home Medications: Fluoxetine HCl [Prozac] 80 mg PO DAILY PRN 02/13/13 Trazodone HCl 150 mg PO BEDTIME 02/13/13 Fluconazole [Diflucan] 150 mg PO 1X #1 tablet 10/23/15 Levofloxacin [Levaquin] 500 mg PO DAILY #5 tablet 10/23/15 Vancomycin HCl 250 mg PO QID #80 capsule 10/23/15 traMADol HCL [Ultram*] 50 mg PO Q6H PRN #20 tab 10/23/15 Review of Systems 10-point ROS is otherwise unremarkable General: Weakness, Malaise Gastrointestinal: Nausea, Vomiting, Abdominal Pain, Diarrhea, As per HPI Neurological: Other ("Brain fog") <RodneyAmeenajd Martinez - Last Filed: 05/27/23 17:38> Physical Examination - Physical Exam General: Alert, In no apparent distress, Cachectic HEENT: Atraumatic, Normocephalic, Other (pallor) Neck: JVD not distended Respiratory: Normal air movement Cardiovascular: Normal pulses, Regular rate/rhythm, Other (no tachycardia) Capillary refill: <2 Seconds Gastrointestinal: Hypoactive, Non-distended Musculoskeletal: No clubbing, No swelling Integumentary: No rashes Neurological: Normal speech, Abnormal strength, Abnormal tone Lymphatics: No axilla or inguinal lymphadenopathy External genitalia: Deferred Rectal: Deferred - Studies Laboratory Data (last 24 hrs) 05/27/23 05/27/23 05/27/23 14:40 13:42 13:42 WBC Hgb Hct Plt Count PT 15.9 H INR 1.46 APTT 33.0 Sodium 129 L Potassium 3.7 BUN 13 Creatinine 5.53 H Glucose 123 H Magnesium 2.3 Total Bilirubin 0.6 AST 119 H ALT 54 Alkaline Phosphatase 244 H Lipase 14 05/27/23 13:42 WBC 13.30 H Hgb 9.5 L Hct 29.3 L Plt Count 257 PT INR APTT Sodium Potassium BUN Creatinine Glucose Magnesium Total Bilirubin AST ALT Alkaline Phosphatase Lipase <Ameena Stevens - Last Filed: 05/27/23 17:38> - Studies Laboratory Data (last 24 hrs) 05/27/23 05/27/23 05/27/23 14:40 13:42 13:42 WBC Hgb Hct Plt Count PT 15.9 H INR 1.46 APTT 33.0 Sodium 129 L Potassium 3.7 BUN 13 Creatinine 5.53 H Glucose 123 H Magnesium 2.3 Total Bilirubin 0.6 AST 119 H ALT 54 Alkaline Phosphatase 244 H Lipase 14 05/27/23 13:42 WBC 13.30 H Hgb 9.5 L Hct 29.3 L Plt Count 257 PT INR APTT Sodium Potassium BUN Creatinine Glucose Magnesium Total Bilirubin AST ALT Alkaline Phosphatase Lipase <Kassy Loya - Last Filed: 05/27/23 22:15> Assessment and Plan - Plan SIRS with shock: Bolus completed in ED Lactate 2.1, will repeat at 1700 blood and urine cultures pending Zosyn 3.375gm IV q 8h (pharmacy to adjust for renal failure) Vancomycin 500mg po TID until Cdiff studies return D5.45 at 100ml/hr monitor end-organs, renal function, liver function, and electrolyte derangements Hepatitis panel Renal ultrasound adwoa Kitchen I&O some question of adrenal hyperplasia on CT: one dose Hydrocortisone 100mg IV given Consult Nephrology [place] vs Pseudomembranous colitis: Zosyn 3.375gm IV q 8h (pharmacy to adjust for renal failure) Vancomycin 500mg po TID until Cdiff studies return HTN: hold antihypertensives HLD: hold statin Depression: hold fluoxetine Anemia: was taking accrufer 30mg po BID, hold for now, anemia appears macrocytic second to ETOH abuse/brain fog, will give B12 IM and thiamine DVT prophylaxis: SCDs Heparin sq Code Status: Full - Advance Directives Does patient have a Living Will: Yes Does patient have a Durable POA for Healthcare: Yes - Code Status/Comfort Care Code Status Assessed: Yes (Full) <Ameena tSevens - Last Filed: 05/27/23 17:38> - Plan Pt seen and examined. I agree with the note by the LUNCH COUNTER MANAGER. Pt is a 52yo female with past medical history of hypertension, hyperlipidemia, anemia, gastrointestinal distress, anxiety, and alcohol abuse presents with nausea, vomiting and volume depletion. Of note, did endoscopy during her last admission and was treated with cipro and flagyl. On admission today, lab studies show hgb 9.5, WBC 13.3, Na 129, potassium 3.7, chloride 105, bicarb 15, BUN 13, Cr 5.53, AST of 119, ALT 57, and alk phos 244.CT abd shows moderate to marked pancolitis with diminished density of the renal cortex bilaterally. At bedside, pt is in NAD. A/P Septic shock 2/2 Pancolitis vs pseudomembrous colitis: Given recent abx exposure. Will start empiric oral vanc and continue renally dosed vanc. Will admit pt in the ICU for possible need for pressor. Will r/o C diff. RAFIA; cr is 5.33. It o.8 on 05/19/23. Will continue IVF, avoid nephrotoxins and monitor renal function. Consulted Nephrology Hx of alcohol abuse: Pt place pt on CIWA protocol Hyponatremia: Na is 129. Will continue IVF and trend Na. Transaminitis: Likely du eto alcohol abuse. Will trend LFTs. Continue home meds for other chronic medical problems. <Kassy Loya - Last Filed: 05/27/23 22:15>
[2023-05-27] MEDS: HYDROCORTISONE SUC 100 MG INJ IV ONE (16:31)
[2023-05-27] MEDS: HEPARIN 5000 UNIT/ML 1 ML VIAL SQ SCH (17:00)
[2023-05-27] MEDS: PIPER TAZO 3.375 GM in NA CHLORIDE 0.9% 100 ML IV SCH (17:00)
[2023-05-27] MEDS: D5 0.45 NS 1,000 ML IV SCH (17:00)
--- NOTE | 2023-05-27 18:02 | RAD REPORT ---
EXAM DESCRIPTION: US - Renal Ultrasound-Complete - 05/27/2023 5:08 pm CLINICAL HISTORY: Acute renal failure COMPARISON: CT May 27, 2023 FINDINGS: The right kidney measures 9 cm with an increased echotexture. The left kidney measures 9 cm with an increased echotexture. Hydronephrosis is not seen. No gross abnormality of bladder is noted IMPRESSION: Increased renal echotexture presumably secondary to septic shock resulting in diminished perfusion to the kidneys
[2023-05-27] MEDS: FENTANYL CITR 100 MCG/2 ML IV ONE (18:30)
[2023-05-27] MEDS ORDERED: HEPARIN 5000 UNIT/ML 1 ML VIAL ONE (18:33)
[2023-05-27] MEDS ORDERED: HYDROCORTISONE SUC 100 MG INJ ONE (18:33)
[2023-05-27] MEDS ORDERED: PIPERACIL/TAZO 3.375 GM VIAL IV ONE (18:34)
[2023-05-27] MEDS ORDERED: FENTANYL CITR 100 MCG/2 ML ONE (18:34)
[2023-05-27] MEDS ORDERED: NA CHLORIDE 0.9% 100 ML ONE (18:34)
[2023-05-27] MEDS ORDERED: D5 0.45 NS 1,000 ML IV ONE (18:35)
[2023-05-27] MEDS: INSULIN REGULAR (HUMAN) 100 UNIT/ML SQ SCH (19:00)
[2023-05-27 19:29] LABS: PTT, Activated Partial Thromb 31.8 SECONDS (24.3-36.9)
[2023-05-27 19:30] LABS: PT Prothrombin Time 16.2 SECONDS (9.5-12.5); Protime INR 1.49
[2023-05-27] MEDS: CYANOCOBALAMIN 1000MCG/ML INJ ONE (20:27)
[2023-05-27] MEDS: VANCOMYCIN ORAL SOLN 250 MG/5 ML OSYR PO SCH (20:31)
[2023-05-27] MEDS: CYANOCOBALAMIN 1000MCG/ML INJ IM ONE (20:46)
[2023-05-27 23:39] LABS: Hepatitis B Core IgM Nonreactive (Nonreactive); Hepatitis B surface AG Interp. Nonreactive (Nonreactive); Hepatitis C Virus Ab Nonreactive (Nonreactive)
[2023-05-27 23:40] LABS: HBsAG Nonreactive Report Report
[2023-05-28] MEDS ORDERED: MAGNES/ALUMIN/SIMET 30ML UCUP ONE (00:19)
[2023-05-28] MEDS ORDERED: FENTANYL CITR 100 MCG/2 ML ONE (00:19)
[2023-05-28] MEDS: MAGNESIUM HYDROXIDE 8% 30 ML PO PRN (00:25)
[2023-05-28] MEDS: FENTANYL CITR 100 MCG/2 ML IV PRN (00:25)
[2023-05-28] MEDS ORDERED: HEPARIN 5000 UNIT/ML 1 ML VIAL ONE ×3 (01:56→18:09)
[2023-05-28] MEDS ORDERED: PIPERACIL/TAZO 3.375 GM VIAL IV ONE ×3 (01:56→18:10)
[2023-05-28] MEDS ORDERED: NA CHLORIDE 0.9% 100 ML ONE ×3 (01:56→18:09)
[2023-05-28 05:13] LABS: Absolute Lymphocytes (CBC) 0.2 K/uL (0.7-4.9); Absolute Monocytes 0.1 K/uL (0.1-1.3); Absolute Neutrophil 7.3 K/uL (1.8-8.0); Basophils % 0.1 % (0-1.3); Hematocrit 23.3 % (36.0-45.0); Hemoglobin 7.5 g/dL (12.0-15.0); Lymphocytes % 2.2 % (15.3-44.8); MCHC 32.1 g/dL (32.0-36.0); MCV 109.2 fL (80-100); MPV 7.6 fL (7.6-11.3); Monocytes % 1.1 % (3.3-12.3); Platelets 222 thou/uL (152-406); RBC Red Blood Cell Count 2.14 M/uL (3.86-4.86); Red Cell Distribution Width 14.3 % (12.1-15.2)
[2023-05-28 05:17] LABS: Neutrophils % 96.6 % (41.7-73.7)
[2023-05-28 05:32] LABS: Albumin 1.8 g/dL (3.4-5.0); Albumin/Globulin Ratio 0.5 (1.1-1.8); Anion Gap 13.7 mEq/L (5.0-15.0); Bilirubin Total 0.5 mg/dL (0.2-1.0); Globulin 3.4 g/dL (2.3-3.5); Magnesium 2.1 mg/dL (1.6-2.4); Phosphorus 2.2 mg/dL (2.5-4.9); Potassium 3.7 mEq/L (3.5-5.1); Protein, Total 5.2 g/dL (6.4-8.2)
[2023-05-28] MEDS: CALCIUM GLUC 10% INJ 4.65 MEQ in NA CHLORIDE 0.9% 100 ML IV ONE (05:52)
[2023-05-28] MEDS: NA CHLORIDE 0.9% 1,000 ML IV SCH (06:00)
[2023-05-28] MEDS ORDERED: CALCIUM GLUCONATE 1 GM IVPB 1 GM/50 ML BAG IV ONE (06:37)
--- NOTE | 2023-05-28 07:10 | RAD REPORT ---
EXAM DESCRIPTION: RAD - Chest Single View - 05/28/2023 6:35 am CLINICAL HISTORY: cough/fluid overload COMPARISON: Chest Single View dated 10/17/2015; Abdomen Pelvis W Contrast dated 05/27/2023; Abdomen Pelvis W Contrast dated 05/19/2023 FINDINGS: Lines: None. Lungs: Basilar airspace disease present. Pleural: Small right pleural effusion. Cardiac: The heart size is within normal limits. Mediastinum: Within normal limits. Bones: No acute fractures. Other: None IMPRESSION: Basilar airspace disease with small right pleural effusion likely representing either at electasis or pneumonia/pneumonitis.
[2023-05-28 07:26] LABS: Hematocrit 26.7 % (36.0-45.0); Hemoglobin 8.8 g/dL (12.0-15.0)
[2023-05-28] MEDS ORDERED: NA CHLORIDE 0.9% 500 ML ONE (08:27)
--- NOTE | 2023-05-28 08:43 | P.PN ---
Subjective Date of Service: 05/28/23 Chief Complaint: pancolitis, acute renal failure, septic shock Subjective: No new changes <Ameena Stevens - Last Filed: 05/28/23 08:44> Date of Service: 05/28/23 <Kassy Loya Tiffanie - Last Filed: 05/28/23 12:35> Review of Systems 10-point ROS is otherwise unremarkable General: Weakness, Malaise Respiratory: Cough Gastrointestinal: Nausea, Abdominal Pain Genitourinary: As per HPI Neurological: As per HPI <Ameena Stevens - Last Filed: 05/28/23 08:44> Physical Examination - Vital Signs Temperature: 97.7 F Blood Pressure: 91/71 Pulse: 68 Respirations: 18 Pulse Ox (%): 99 - Physical Exam General: Alert, In no apparent distress, Oriented x3 HEENT: Atraumatic, Normocephalic, Scleral icterus Neck: JVD not distended Respiratory: Normal air movement, Other (+ cough, repeat CXR ordered) Cardiovascular: No edema, Normal pulses, Regular rate/rhythm Capillary refill: <2 Seconds Gastrointestinal: Hypoactive Musculoskeletal: No clubbing, No swelling Integumentary: No rashes Neurological: Normal speech, Abnormal tone Lymphatics: No axilla or inguinal lymphadenopathy External genitalia: Deferred Rectal: Deferred (Kitchen ordered but not placed, unsure if pt has been anuric all pm) - Studies Laboratory Data (last 24 hrs) 05/27/23 05/27/23 05/27/23 14:40 13:42 13:42 WBC Hgb Hct Plt Count PT 15.9 H INR 1.46 APTT 33.0 Sodium 129 L Potassium 3.7 BUN 13 Creatinine 5.53 H Glucose 123 H Magnesium 2.3 Total Bilirubin 0.6 AST 119 H ALT 54 Alkaline Phosphatase 244 H Lipase 14 05/27/23 13:42 WBC 13.30 H Hgb 9.5 L Hct 29.3 L Plt Count 257 PT INR APTT Sodium Potassium BUN Creatinine Glucose Magnesium Total Bilirubin AST ALT Alkaline Phosphatase Lipase <Ameena Stevens - Last Filed: 05/28/23 08:44> - Studies Laboratory Data (last 24 hrs) 05/27/23 05/27/23 05/27/23 14:40 13:42 13:42 WBC Hgb Hct Plt Count PT 15.9 H INR 1.46 APTT 33.0 Sodium 129 L Potassium 3.7 BUN 13 Creatinine 5.53 H Glucose 123 H Magnesium 2.3 Total Bilirubin 0.6 AST 119 H ALT 54 Alkaline Phosphatase 244 H Lipase 14 05/27/23 13:42 WBC 13.30 H Hgb 9.5 L Hct 29.3 L Plt Count 257 PT INR APTT Sodium Potassium BUN Creatinine Glucose Magnesium Total Bilirubin AST ALT Alkaline Phosphatase Lipase <LyndseyNena dupreetonihector C - Last Filed: 05/28/23 12:35> Assessment And Plan - Plan SIRS with shock: Bolus completed in ED Lactate 2.1, will repeat at 1700 - resolved blood and urine cultures pending Zosyn 3.375gm IV q 8h (pharmacy to adjust for renal failure) Vancomycin 500mg po TID until Cdiff studies return D5.45 at 100ml/hr - despite 60ml/kg NS bolus, Na remains 129, change IVF to NS at 100ml/hr monitor end-organs, renal function, liver function, and electrolyte derangements, 05/27 with increased acidosis, decreased Ca (corrected for albumin low norm), low phosphorous, secondary to malabsorption will give 1gm Ca G luconate, 1 amp NaHCO3, and one unit PRBCs Hepatitis panel - negative Renal ultrasound - "IMPRESSION: Increased renal echotexture presumably secondary to septic shock resulting in diminished perfusion to the kidneys" adwoa Kitchen I&O - not placed until 05/27 am some question of adrenal hyperplasia on CT: one dose Hydrocortisone 100mg IV given - done, no change in BP Consult Nephrology [place] vs Pseudomembranous colitis: Zosyn 3.375gm IV q 8h (pharmacy to adjust for renal failure) Vancomycin 500mg po TID until Cdiff studies return HTN: hold antihypertensives HLD: hold statin Depression: hold fluoxetine Anemia: was taking accrufer 30mg po BID, hold for now, anemia appears macrocytic second to ETOH abuse/brain fog, will give B12 IM and thiamine hypoalbuminemia with anemia, 1 unit PRBC and reassess DVT prophylaxis: SCDs Heparin sq Code Status: Full <Stevens,Ameena Juan - Last Filed: 05/28/23 08:44> - Plan Pt seen and examined. I agree with the note by ROTO ROOTER OPERATOR. Will continue abx for pancolitis. No BM to r/o C diff. Low threshold to start pressor if MAP < 65. Continue CIWA protocol and home meds for other chronic medical problems. <Kassy Loya - Last Filed: 05/28/23 12:35>
[2023-05-28] MEDS: THIAMINE 200 MG/2 ML INJ IVP SCH (09:00)
[2023-05-28] MEDS: INFLUENZA VACCINE (for 6+ mo) 0.5 ML DOSE IMVAC ONE (09:12)
[2023-05-28] MEDS ORDERED: THIAMINE 200 MG/2 ML INJ ONE ×2 (09:34→09:57)
[2023-05-28] MEDS ORDERED: MORPHINE 2 MG/ML SYR ONE (10:36)
[2023-05-28] MEDS: MORPHINE 2 MG/ML SYR IV PRN (10:40)
[2023-05-28 11:09] LABS: UR CL RANDOM < 12 mmol/L (25-40); UR SODIUM 20 mmol/L (27-287)
[2023-05-28 11:37] LABS: C.diff Antigen/Toxin Ag neg : Tox neg (NEG : NEG); CDIFF INTERNAL NEG CONTROL White Background (WHITE BKGD); STOOL CONSISTENCY Liquid/Semi-Solid
[2023-05-28 11:53] LABS: MA/CREAT RATIO 956.9 (< 30.0); UR MICROALBUMIN 48.8 mg/dL (< 1.9)
[2023-05-28 14:10] LABS: Albumin/Globulin Ratio 0.5 (1.1-1.8); Anion Gap 13.1 mEq/L (5.0-15.0); Bilirubin Total 0.7 mg/dL (0.2-1.0); Globulin 3.9 g/dL (2.3-3.5); Potassium 3.1 mEq/L (3.5-5.1); Protein, Total 5.9 g/dL (6.4-8.2)
[2023-05-28 14:26] LABS: Hematocrit 35.8 % (36.0-45.0); Hemoglobin 11.8 g/dL (12.0-15.0)
[2023-05-28] MEDS: POTASSIUM PHOS IN 0.9 % NACL 15 MMOL/250 ML BAG IV ONE ×3 (17:11→21:45)
[2023-05-28 19:07] LABS: Albumin/Globulin Ratio 0.5 (1.1-1.8); Anion Gap 13.2 mEq/L (5.0-15.0); Bilirubin Total 0.6 mg/dL (0.2-1.0); Globulin 3.8 g/dL (2.3-3.5); Protein, Total 5.8 g/dL (6.4-8.2)
[2023-05-28 19:08] LABS: Potassium 3.2 mEq/L (3.5-5.1)
[2023-05-28] MEDS: HYDROCODONE/APAP 5/325 MG TAB PO ONE (19:29)
[2023-05-28 20:59] LABS: Albumin 1.5 g/dL (3.4-5.0); Albumin/Globulin Ratio 0.5 (1.1-1.8); Anion Gap 17.9 mEq/L (5.0-15.0); Bilirubin Total 0.4 mg/dL (0.2-1.0); Protein, Total 4.5 g/dL (6.4-8.2)
[2023-05-28 21:02] LABS: Potassium 6.9 mEq/L (3.5-5.1)
[2023-05-28] MEDS: Mupirocin NASAL 2 APPL/1 GM TUBE NAS SCH (21:18)
[2023-05-28 21:34] LABS: Anion Gap 16.4 mEq/L (5.0-15.0); Potassium 3.4 mEq/L (3.5-5.1)
[2023-05-28] MEDS ORDERED: NA CHLORIDE 0.9% 1,000 ML ONE (23:39)
[2023-05-28] MEDS: NA CHLORIDE 0.9% 1,000 ML IV ONE (23:40)
[2023-05-29] MEDS ORDERED: NA CHLORIDE 0.9% 0 ML ONE (00:32)
[2023-05-29] MEDS ORDERED: VANCOMYCIN 500 MG/VIAL ONE (00:32)
[2023-05-29] MEDS: NA CHLORIDE 0.9% 1,000 ML IV ONE (01:00)
[2023-05-29] MEDS: WATER FOR INJ,STERILE 1,000 ML with NA BICARB 8.4% 150 MEQ IV SCH (01:00)
[2023-05-29] MEDS: MIDODRINE HCL 5 MG TABLET PO SCH (01:48)
[2023-05-29] MEDS ORDERED: D5W 1,000 ML IV ONE (01:50)
[2023-05-29] MEDS ORDERED: SODIUM BICARB 50 MEQ/50ML VIAL ONE (01:55)
[2023-05-29] MEDS: D5W 1,000 ML with NA BICARB 8.4% 150 MEQ IV SCH (01:56)
[2023-05-29 04:52] VITALS: BMI 19.9
[2023-05-29 05:14] LABS: Absolute Basophils 0.1 K/uL (0-0.5); Absolute Lymphocytes (CBC) 0.5 K/uL (0.7-4.9); Absolute Monocytes 0.6 K/uL (0.1-1.3); Absolute Neutrophil 7.7 K/uL (1.8-8.0); Basophils % 0.6 % (0-1.3); Eosinophils % 0.2 % (0-4.4); Hematocrit 27.1 % (36.0-45.0); Hemoglobin 9.4 g/dL (12.0-15.0); Lymphocytes % 6.1 % (15.3-44.8); MCH 34.8 pg (27.0-35.0); MCHC 34.5 g/dL (32.0-36.0); MCV 100.7 fL (80-100); MPV 7.2 fL (7.6-11.3); Monocytes % 6.5 % (3.3-12.3); Neutrophils % 86.6 % (41.7-73.7); Platelets 176 thou/uL (152-406); RBC Red Blood Cell Count 2.69 M/uL (3.86-4.86); Red Cell Distribution Width 16.9 % (12.1-15.2)
[2023-05-29 05:32] LABS: Albumin 1.5 g/dL (3.4-5.0); Albumin/Globulin Ratio 0.5 (1.1-1.8); Anion Gap 13.2 mEq/L (5.0-15.0); Bilirubin Total 0.4 mg/dL (0.2-1.0); Magnesium 1.7 mg/dL (1.6-2.4); Phosphorus 4.7 mg/dL (2.5-4.9); Potassium 3.2 mEq/L (3.5-5.1); Protein, Total 4.5 g/dL (6.4-8.2)
[2023-05-29] MEDS: CALCIUM GLUC 10% INJ 4.65 MEQ in NA CHLORIDE 0.9% 100 ML IV ONE (05:53)
[2023-05-29] MEDS: ALBUMIN HUMAN 25% 100 ML IV ONE (06:10)
[2023-05-29] MEDS ORDERED: DOPAMINE/D5W 400 MG/250 ML BAG IV ONE ×2 (06:21→20:01)
[2023-05-29] MEDS: DOPAMINE/D5W 400 MG/250 ML BAG IV SCH (06:22)
--- NOTE | 2023-05-29 07:02 | RAD REPORT ---
EXAM DESCRIPTION: RAD - Chest Single View - 05/29/2023 2:34 am CLINICAL HISTORY: PICC Line insertion COMPARISON: Chest Single View dated 05/28/2023; Chest Single View dated 10/17/2015; Abdomen Pelvis W Contrast dated 05/27/2023 FINDINGS: Lines: Right subclavian approach PICC with tip overlying the proximal SVC in satisfactory position. Lungs: Worsening airspace disease in the lung bases. Pleural: Small left pleural effusion. Cardiac: The heart size is within normal limits. Mediastinum: Within normal limits. Bones: No acute fractures. Other: None IMPRESSION: Worsening airspace disease in the lung bases which may reflect increasing atelectasis an d/or pneumonia/pneumonitis. The PICC is in satisfactory position with tip overlying the mid SVC. .
[2023-05-29] MEDS ORDERED: ONDANSETRON 4 MG/2 ML VIAL ONE ×2 (07:22→15:10)
[2023-05-29] MEDS ORDERED: THIAMINE 200 MG/2 ML INJ ONE (08:47)
[2023-05-29] MEDS: CALCIUM GLUCONATE 1 GM IVPB 1 GM/50 ML BAG IV ONE ×2 (08:49→15:15)
[2023-05-29] MEDS: POTASSIUM CL SA 10 MEQ TAB PO SCH (08:50)
[2023-05-29] MEDS: ONDANSETRON 4 MG/2 ML VIAL IV PRN (08:52)
[2023-05-29] MEDS: POTASSIUM PHOS IN 0.9 % NACL 15 MMOL/250 ML BAG IV ONE (08:55)
--- NOTE | 2023-05-29 09:53 | P.PN ---
Subjective Date of Service: 05/29/23 Chief Complaint: pancolitis, acute renal failure, septic shock pressures remain low, pt c/o swelling, has been unable to receive pain medication 2nd to hypotension. There was an erroneous potassium documented overnight, repeat was still hypokalemic. <Ameena Stevens - Last Filed: 05/29/23 09:42> Date of Service: 05/29/23 <Kassy Loya Tiffanie - Last Filed: 05/29/23 12:01> Review of Systems 10-point ROS is otherwise unremarkable General: Weakness, Malaise Respiratory: Cough Gastrointestinal: Nausea, Abdominal Pain, Diarrhea Musculoskeletal: As per HPI Neurological: Other ("i'm miserable") Other: feels swollen <Ameena Stevens - Last Filed: 05/29/23 09:42> Physical Examination - Vital Signs Temperature: 97.4 F Blood Pressure: 86/64 Pulse: 73 Respirations: 22 Pulse Ox (%): 97 - Physical Exam General: Alert, Other (uncomfortable) HEENT: Atraumatic Neck: JVD not distended Respiratory: Normal air movement Cardiovascular: No edema Capillary refill: <2 Seconds Gastrointestinal: Other (copious stools overnight), Distended Musculoskeletal: No clubbing, No swelling Integumentary: No rashes, Other (pallor) Neurological: Normal speech, Abnormal strength, Abnormal tone Lymphatics: No axilla or inguinal lymphadenopathy Urinary: Bartlett catheter, Other (scant output over the past two days - 300 total per bartlett as of 0600) External genitalia: Deferred Rectal: Deferred <Ameena Stevens - Last Filed: 05/29/23 09:42> Assessment And Plan - Plan SIRS with shock: Bolus completed in ED Lactate 2.1, will repeat at 1700 - resolved blood and urine cultures pending Zosyn 3.375gm IV q 8h (pharmacy to adjust for renal failure) Vancomycin 500mg po TID until Cdiff studies return D5.45 at 100ml/hr - despite 60ml/kg NS bolus, Na remains 129, changed IVF to NS at 100ml/hr. Nephrology oredered bolus overnight, added D5W with 50meq Nabicarb. added Midodrine q 8h po. pressure as low as 70/40 overnight. Pt with poor perfusion, pain without being able to treat second to hypotension. Severe hypoalbuminemia. Will dc, D5W second to continued hyponatremia, will give albumin, calcium gluconate, Na bicarb push, and start dopamine to maintain SBP of >90. monitor end-organs, renal function, liver function, and electrolyte derangements, 05/28 with continued acidosis, decreased Ca (corrected for albumin 7.7), low phosphorous, secondary to malabsorption will repeat 1gm Ca Gluconate, 1 amp NaHCO3, and albumin. Will start IV pressors thru PICC Hepatitis panel - negative Renal ultrasound - "IMPRESSION: Increased renal echotexture presumably secondary to septic shock resulting in diminished perfusion to the kidneys" adwoa Bartlett I&O - not placed until 05/27 am - total output from placement 300ml as of 6am 05/28 Consult Nephrology [place] vs Pseudomembranous colitis: Zosyn 3.375gm IV q 8h (pharmacy to adjust for renal failure) Vancomycin 500mg po TID until Cdiff studies return HTN: hold antihypertensives HLD: hold statin Depression: hold fluoxetine Anemia: was taking accrufer 30mg po BID, hold for now, anemia appears macrocytic second to ETOH abuse/brain fog, will give B12 IM and thiamine hypoalbuminemia with anemia, 1 unit PRBC given yesterday, will give albumin today 05/28 and reassess DVT prophylaxis: SCDs Heparin sq Code Status: Full - Code Status/Comfort Care Code Status Assessed: Yes (Full) <Ameena Stevens - Last Filed: 05/29/23 09:42> - Plan Pt nory nd examined. I agree with the note by the WORK CAR OPERATOR. C diff is negative. Will stop po vanc. Continue dopamine for BP support and wean as tolerated. Consulted GI for evaluation. No recent dark stool. Will continue protonix iv BID. Continue prn phenergan for nausea. Waiting for Nephrology eval. Continue IVF for RAFIA. Cr is 4.75 <- 5.33. Renal ultrasound showed decreased perfusion of the kidneys due to sever hypotension. <Kassy Loya - Last Filed: 05/29/23 12:01>
[2023-05-29 10:08] LABS: Anion Gap 13.9 mEq/L (5.0-15.0); Potassium 2.9 mEq/L (3.5-5.1)
[2023-05-29] MEDS ORDERED: PROMETHAZINE INJ 25 MG/ML AMP ONE (11:15)
[2023-05-29] MEDS ORDERED: SODIUM CHLORIDE 0.9% 10ML INJ IV PRN (11:55)
[2023-05-29] MEDS ORDERED: PANTOPRAZOLE 40 MG INJ ONE (12:03)
[2023-05-29] MEDS ORDERED: POTASSIUM CL SA 10 MEQ TAB PO ONE (12:04)
[2023-05-29] MEDS ORDERED: NA CHLORIDE 0.9% 1,000 ML ONE (12:04)
[2023-05-29] MEDS: PANTOPRAZOLE 40 MG INJ IVP SCH (12:09)
[2023-05-29] MEDS: PROMETHAZINE INJ 25 MG/ML AMP IV PRN (12:09)
[2023-05-29] MEDS ORDERED: LORazepam 2 MG/ML VIAL IV PRN (13:56)
[2023-05-29 14:08] LABS: Anion Gap 18.3 mEq/L (5.0-15.0); Potassium 4.3 mEq/L (3.5-5.1)
[2023-05-29] MEDS: ACETAMINOPHEN 325 MG TABLET PO PRN (14:52)
[2023-05-29] MEDS ORDERED: CALCIUM GLUCONATE 1 GM IVPB 1 GM/50 ML BAG IV ONE (15:14)
[2023-05-29] MEDS ORDERED: OXYCODONE HCL 5 MG TAB ONE (16:45)
[2023-05-29] MEDS ORDERED: HEPARIN 5000 UNIT/ML 1 ML VIAL ONE (16:47)
[2023-05-29] MEDS ORDERED: NA CHLORIDE 0.9% 100 ML ONE (16:47)
[2023-05-29] MEDS ORDERED: PIPERACIL/TAZO 3.375 GM VIAL IV ONE (16:47)
[2023-05-29] MEDS: OXYCODONE HCL 5 MG TAB PO PRN (16:53)
[2023-05-29 21:27] LABS: Anion Gap 16.9 mEq/L (5.0-15.0); Potassium 4.9 mEq/L (3.5-5.1)
[2023-05-30 00:16] VITALS: O2SAT 93
[2023-05-30] MEDS ORDERED: NA CHLORIDE 0.9% 100 ML ONE ×2 (00:28→07:53)
[2023-05-30] MEDS ORDERED: PIPERACIL/TAZO 3.375 GM VIAL IV ONE ×2 (00:29→07:53)
[2023-05-30] MEDS ORDERED: NA CHLORIDE 0.9% 1,000 ML ONE (00:38)
--- NOTE | 2023-05-30 03:02 | CON ---
Date of Consultation: 05/29/2023 Chief Complaint: Acute kidney injury, septic shock, pancolitis. History Of Present Illness: The patient is a 52-year-old woman with past medical history significant for hypertension, hyperlipidemia, chronic anemia, gastrointestinal distress, anxiety, and alcohol ab use. The patient was seen by home health registered nurse for persistent nausea, vomiting, diarrhea, and weigh t loss. She had endoscopy, colonoscopy, and stool study. She arrived to emergency room on May 18 b ecause of vomiting. Her lab work showed anemia. Hemoglobin was 9.3. The patient had diminished uri ne output and Nephrology consultation is requested for acute kidney injury. Patient has oliguria. S he is on dopamine drip and IV fluids. She was found to have metabolic acidosis. Lactic acid was lizette vated. CT scan of the abdomen and pelvis showed findings significant for extensive colitis involving cecum and ascending colon. Small volume ascites with extensive mesenteric edema was present and enl arged liver, which was diffusely heterogeneous was identified. The patient was started on Cipro and Flagyl for pancolitis. On May 26, the patient was admitted to the hospital when she presented agai n to emergency room and was complaining of nausea, vomiting. Blood work showed creatinine of 5.53, B UN 13, sodium 129, potassium 3.7, chloride 105, bicarbonate 15. The patient was evaluated with CT sc an. She received IV contrast, which showed [id number] pancolitis. She was admitted to ICU f or pancolitis, acute renal failure, septic shock. She is on dopamine drip for blood pressure support . Consent for pseudomembranous colitis was addressed with C difficile status and results are pending . The patient was started on oral vancomycin and IV Cipro mg was started after cultures w ere obtained. Past Medical History: Endometriosis, hypertension, depression, alcohol abuse, hysterectomy, partial colon removal. Patient lives at home with her . She has history of alcohol intake. She drin ks vodka every 5 days. Family History: No kidney disease in the family. Father had a prostate cancer. Mother lung cancer. Social History: Denies tobacco, alcohol. She drinks alcohol. Review of Systems: Constitutional: Denies fever, chills. Eyes: Denies vision changes. Ears, Nose, Mouth, and Throat: Denies sore throat, earache. Respiratory: Denies PND, orthopnea. Cardiovascular: Denies chest pain, palpitation, syncope. GI: Has nausea, vomiting. Denies melena, hematemesis. All other systems reviewed and all are negative. Physical Examination: General: Patient is awake, alert, appears cachectic. Eyes: Anicteric sclerae. EOMI. Ears, Nose, Mouth and Throat: Oral mucosa moist. No pallor. Neck: Supple. No bruits. Lungs: Diminished breath sounds at bases. Heart: S1, S2. Abdomen: Soft. Diminished bowel sounds. Extremities: Edema in the upper and lower extremity. Laboratory Data: INR 1.4, PT 15.9, APTT 33. Sodium 129, potassium 3.7, BUN 13, creatinine 5.53, glu cose 123, total bilirubin 0.6. WBC 13.3. Impression And Plan: Acute kidney injury secondary to sepsis, hypotension, volume depletion related to pancolitis. The patient is on IV fluids and dopamine drip. The patient was found to have metabol ic acidosis. Lactic acid was elevated. Patient required IV bicarbonate to control acidosis. There is ongoing hypokalemia. Patient is on the IV potassium chloride to treat hypokalemia. Plan is to mo nitor magnesium and phosphorus level. 1.Acute kidney injury is severe. Patient is on IV fluids, although she may require dialysis. Plan is to assess her renal tomorrow and discuss with the family plan to start hemodialysis. R enal ultrasound did not show obstructive uropathy. The patient has Kitchen catheter. Continue to [facility] tor I's and O's. 2.Pseudomembranous colitis and pancolitis. The patient is on Zosyn IV and vancomycin p.o. 3.Hypertension. Patient has history of hypertension. Blood pressure medication on hold. 4.Depression, per primary team. 5.Anemia. Management per primary team. EB/MODL Voice ID: [id number] Report ID: [id number]
[2023-05-30 05:38] LABS: Absolute Basophils 0.1 K/uL (0-0.5); Absolute Lymphocytes (CBC) 0.7 K/uL (0.7-4.9); Absolute Neutrophil 17.7 K/uL (1.8-8.0); Basophils % 0.6 % (0-1.3); Eosinophils % 0.1 % (0-4.4); Hematocrit 30.3 % (36.0-45.0); Hemoglobin 10.3 g/dL (12.0-15.0); Lymphocytes % 3.5 % (15.3-44.8); MCH 34.1 pg (27.0-35.0); MCHC 33.9 g/dL (32.0-36.0); MCV 100.4 fL (80-100); MPV 7.6 fL (7.6-11.3); Monocytes % 5.1 % (3.3-12.3); Neutrophils % 90.7 % (41.7-73.7); Platelets 239 thou/uL (152-406); RBC Red Blood Cell Count 3.01 M/uL (3.86-4.86); Red Cell Distribution Width 16.8 % (12.1-15.2)
[2023-05-30 05:58] VITALS: TEMP 97.2
--- NOTE | 2023-05-30 06:25 | P.PN ---
Subjective Date of Service: 05/30/23 Chief Complaint: pancolitis, acute renal failure, septic shock Subjective: Other (fatigued, weak, asks, "am I going to get better?") pressures remain low, pt c/o swelling, has been unable to receive pain medication 2nd to hypotension. There was an erroneous potassium documented overnight, repeat was still hypokalemic. <Ameena Stevens - Last Filed: 05/30/23 06:17> Date of Service: 05/30/23 <Kassy Loya - Last Filed: 05/30/23 11:37> Review of Systems 10-point ROS is otherwise unremarkable General: As per HPI Gastrointestinal: As per HPI Neurological: As per HPI <Ameena Stevens - Last Filed: 05/30/23 06:17> Physical Examination - Vital Signs Temperature: 97.2 F Blood Pressure: 106/77 Pulse: 89 Respirations: 22 Pulse Ox (%): 92 - Physical Exam General: Cooperative, Cachectic, Other (fatigued, anasarca) HEENT: Atraumatic, Normocephalic Neck: No Thyromegaly Respiratory: Diminished, Other (cough) Cardiovascular: Regular rate/rhythm, Edema Capillary refill: <2 Seconds Gastrointestinal: Hypoactive, No tenderness Musculoskeletal: No clubbing Integumentary: No rashes, Other (pallor) Neurological: Normal speech, Abnormal strength, Abnormal tone Lymphatics: No axilla or inguinal lymphadenopathy Urinary: Kitchen catheter (continued poor output, awaiting morning labs) External genitalia: Deferred Rectal: Deferred <Ameena Stevens - Last Filed: 05/30/23 06:17> - Studies Microbiology Data (last 24 hrs): 05/27/23 13:23 Clean Catch Urine [place] Count - Final <10,000 CFU/ML. 05/27/23 13:23 Clean Catch Urine - Final <Kassy Loya - Last Filed: 05/30/23 11:37> Assessment And Plan - Plan SIRS with shock: Bolus completed in ED Lactate 2.1, will repeat at 1700 - resolved blood and urine cultures pending Zosyn 3.375gm IV q 8h (pharmacy to adjust for renal failure) Vancomycin 500mg po TID until Cdiff studies return D5.45 at 100ml/hr - despite 60ml/kg NS bolus, Na remains 129, changed IVF to NS at 100ml/hr. Nephrology oredered bolus overnight, added D5W with 50meq Nabicarb. added Midodrine q 8h po. pressure as low as 70/40 overnight. Pt with poor perfusion, pain without being able to treat second to hypotension. Severe hypoalbuminemia. Will dc, D5W second to continued hyponatremia, will give albumin, calcium gluconate, Na bicarb push, and start dopamine to maintain SBP of >90. monitor end-organs, renal function, liver function, and electrolyte derangements, 05/28 with continued acidosis, decreased Ca (corrected for albumin 7.7), low phosphorous, secondary to malabsorption will repeat 1gm Ca Gluconate, 1 amp NaHCO3, and albumin. Will start IV pressors thru PICC, dopamine continues 05/29 Hepatitis panel - negative Renal ultrasound - "IMPRESSION: Increased renal echotexture presumably secondary to septic shock resulting in diminished perfusion to the kidneys" adwoa Kitchen I&O - not placed until 05/27 am - total output from placement 300ml as of 6am 05/28, continued poor output 05/29, anasarca, awaiting morning labs. 14+ kg weight gain. Nephrology discussed dialysis with patient 05/28. Nephrology following [place] vs Pseudomembranous colitis: Zosyn 3.375gm IV q 8h (pharmacy to adjust for renal failure) HTN: hold antihypertensives HLD: hold statin Depression: hold fluoxetine Anemia: was taking accrufer 30mg po BID, hold for now, anemia appears macrocytic second to ETOH abuse/brain fog, will give B12 IM and thiamine hypoalbuminemia with anemia, 1 unit PRBC given yesterday, will give albumin today 05/28 and reassess. levels pending 05/29 DVT prophylaxis: SCDs Heparin sq Code Status: Full - Code Status/Comfort Care Code Status Assessed: Yes (Full) <Ameena Stevens - Last Filed: 05/30/23 06:17> - Plan Pt seen and examined. I agree withe note by the [employer]EL[employer]. Pt is fluid overloaded and needs CRRT. Will transfer her to [facility] for CRRT. The WBC increased to 19.5 this am and procalcitonin is 15. Will continue zosyn and po vanc. Pt is very sick. Will continue ICU level of care. Will replete calcium, magnesium and monitor other electrolytes. <Kassy Loya - Last Filed: 05/30/23 11:37>
[2023-05-30 06:52] LABS: ALT/SGPT 46 U/L (13-56); AST/SGOT 82 U/L (15-37); Albumin 1.8 g/dL (3.4-5.0); Albumin/Globulin Ratio 0.5 (1.1-1.8); Alkaline Phosphatase 155 U/L (45-117); Anion Gap 18.7 mEq/L (5.0-15.0); BUN Blood Urea Nitrogen 15 mg/dL (7-18); Bicarbonate 12 mEq/L (21-32); Bilirubin Total 0.6 mg/dL (0.2-1.0); Creatine Phosphokinase 31 U/L (26-192); Globulin 3.4 g/dL (2.3-3.5); Glomerular Filtration Rate 11 ml/min (=/>90); Glucose Level 114 mg/dL (74-106); Magnesium 1.8 mg/dL (1.6-2.4); Phosphorus 4.3 mg/dL (2.5-4.9); Potassium 4.7 mEq/L (3.5-5.1); Protein, Total 5.2 g/dL (6.4-8.2); Sodium Level 139 mEq/L (136-145); Transferrin 72 mg/dL (200-360); Uric Acid 6.6 mg/dL (2.6-6.0)
[2023-05-30] MEDS ORDERED: THIAMINE 200 MG/2 ML INJ ONE (07:52)
[2023-05-30] MEDS ORDERED: DOPAMINE/D5W 0 MG/0 ML BAG IV ONE (07:52)
[2023-05-30 08:34] LABS: Blood Morphology Comment NOT SEEN (NOT SEEN); Platelet Estimate ADEQ; White Blood Cell Scan OK (OK)
[2023-05-30] MEDS: VANCOMYCIN ORAL SOLN 250 MG/5 ML OSYR PO SCH (08:51)
[2023-05-30] MEDS: CALCIUM GLUCONATE 1 GM IVPB 1 GM/50 ML BAG IV ONE (08:56)
[2023-05-30] MEDS ORDERED: LIDOCAINE 1% 20 ML MDV ONE (11:40)
--- NOTE | 2023-05-30 11:40 | P.PN ---
Date of Service: 05/30/23 significant increase in edema, chest congestion, HR and RR and O2 requirement increased. Nephrology contacted re: need for CRRT. Transfer to tertiary care initiated.
[2023-05-30] MEDS ORDERED: NS 0.9% VIAL 0 ML ONE (11:41)
--- NOTE | 2023-05-30 13:49 | RAD REPORT ---
EXAM DESCRIPTION: RAD - Pelvis - 05/30/2023 1:40 pm CLINICAL HISTORY: Hemodialysis catheter placement FINDINGS: A right femoral hemodialysis has been placed. The tip overlies the S1 segment right sacrum presumably within the right common iliac or right external iliac vein
--- NOTE | 2023-05-30 13:50 | RAD REPORT ---
EXAM DESCRIPTION: [place] Single View05/30/2023 1:40 pm CLINICAL HISTORY: Shortness of breath COMPARISON: May 28, 2023 FINDINGS: Mild worsening in diffuse bilateral pulmonary opacities Small pleural effusions. Heart is normal size. PICC line in place IMPRESSION: Mild worsening in diffuse bilateral pulmonary opacities probably pulmonary edema
[2023-05-30] MEDS ORDERED: HEPARIN 5000 UNIT/ML 1 ML VIAL ONE (13:51)
--- NOTE | 2023-05-30 14:13 | CON ---
Date of Consultation: 05/30/2023 Reason For Consultation: The patient needs urgent dialysis. History Of Present Illness: The patient is a 52-year-old female with multiple medical problems who c duarte in with acute renal failure and septic shock secondary to pancolitis. She is on vasopressors rig ht now and she is fluid overloaded and the Renal team has seen her and she requires urgent dialysis. Therefore I was asked to place temporary dialysis catheter. The patient is awake, alert, in some di stress and anxious. However, she denies any chest pain, fever or chills at this time. Review of Systems: Otherwise unremarkable. Past Medical History: Hypertension, depression, endometriosis, hyperlipidemia, alcohol use. Past Surgical History: Hysterectomy and partial colectomy. Allergies: NONE. Family History: Noncontributory. Social History: She does not smoke. Does drink alcohol. Physical Examination: Vital Signs: Blood pressure 107/80, on dopamine, pulse rate is 94, respiratory rate is 24, she is sa turating at 93% on nasal cannula. General: She is awake and alert. Head and Neck: No masses. Chest: Clear. Heart: S1, S2. Abdomen: Soft. Extremities: Significant edema, anasarca. Laboratory Data: Reviewed, white count is 19,500, with a left shift. INR is 1.49. Chemistry review ed. Calcium is 5.7. BUN is 15, creatinine is 4.66. Assessment: Acute renal failure in patient with septic shock secondary to pancolitis. Recommendations: We will place a right femoral Ousmane catheter. The patient understands risks, dee efits, alternatives, agrees to procedure. Procedure Note: Under sterile condition, Doppler device used to identify the right femoral artery an d then medial to that lidocaine 1% was infiltrated locally and then 18-gauge needle used to access th e right femoral vein. Guidewire passed Ousmane catheter placed and secured with 3-0 nylon . Catheter flushed with heparin, packed with heparin, with good blood flow. Sterile dressing appljoan d. The patient tolerated procedure in stable condition. X-ray of the abdomen in order to make sure the catheter is in the proper place. /MODL Voice ID: [id number] Report ID: [id number]
[2023-05-30 14:44] VITALS: BP 98/73
[2023-05-31 07:26] LABS: Rheumatoid Factor NEG (NEG)
== END 2023-05-30 14:25 | disposition short-term general hospital (02) | DRG 871 ==
LOC: ER 13:05 → ERHOLD 16:06 → 3RD-ICU 05-28 17:28
PROVIDERS: ADMIT Hospitalist; ATTEND Hospitalist
PROC: 0T9B70Z Drainage of Bladder with Drainage Device, Via Natural or Artificial Opening (ICD-10-PCS; 2023-05-27)
PROC: 30233N1 Transfusion of Nonautologous Red Blood Cells into Peripheral Vein, Percutaneous Approach (ICD-10-PCS; 2023-05-28)
PROC: 02HV33Z Insertion of Infusion Device into Superior Vena Cava, Percutaneous Approach (ICD-10-PCS; principal; 2023-05-29)
DX: A41.9 Sepsis, unspecified organism (principal); R65.21 Severe sepsis with septic shock; N17.9 Acute kidney failure, unspecified; R64 Cachexia; Z68.1 Body mass index [BMI] 19.9 or less, adult; E87.1 Hypo-osmolality and hyponatremia; E87.20 Acidosis, unspecified; R18.8 Other ascites; I10 Essential (primary) hypertension; F32.A Depression, unspecified; E78.5 Hyperlipidemia, unspecified; D53.9 Nutritional anemia, unspecified; E86.0 Dehydration; E87.6 Hypokalemia; E86.9 Volume depletion, unspecified; E88.09 Other disorders of plasma-protein metabolism, not elsewhere classified; F10.10 Alcohol abuse, uncomplicated; K52.9 Noninfective gastroenteritis and colitis, unspecified; R74.01 Elevation of levels of liver transaminase levels; Z90.49 Acquired absence of other specified parts of digestive tract; Z90.710 Acquired absence of both cervix and uterus; Z79.899 Other long term (current) drug therapy
CPT/HCPCS: 36415; 36430; 71045; 72170; 74177; 76770; 80048; 80053; 80061; 80069; 80074; 80202; 81001; 82043; 82435; 82550; 82570; 82607; 82947; 83520; 83540; 83605; 83690; 83735; 83930; 83935; 83970; 84100; 84145; 84165; 84300; 84439; 84443; 84466; 84550; 85014; 85018; 85025; 85610; 85730; 86021; 86038; 86160; 86225; 86308; 86430; 86803; 86850; 86900; 86901; 86920; 87040; 87086; 87088; 87324; 94010; 96361; 96365; 96375; 99285; A4216; C9113; J0612; J0744; J1265; J1644; J1720; J2001; J2270; J2405; J2543; J2550; J3010; J3411; J3420; J7030; J7040; J7799; P9016; P9047; Q9967